=== PATIENT | female | born 1965 | race Caucasian/White ===

== ENCOUNTER → 2018-03-03 16:40 | Outpatient (REF) | payer BC, SELFPAY ==
[2018-03-03 21:45] LABS: Absolute Basophil Count 0.04 k/cumm (0.0-0.2); Absolute Eosinophil Count 0.17 k/cumm (0.0-0.7); Absolute Lymphocyte Count 2.43 k/cumm (1.2-3.4); Absolute Monocyte Count 0.53 k/cumm (0.11-0.7); Absolute Neutrophil Count 3.56 k/cumm (1.2-6.7); Basophils % 0.6; Eosinophils % 2.5; HCT 41.8 % (36.0-46.0); Lymphocytes % 36.1; Mean Corp. HGB Concentration 33.5 g/dL (32.0-36.0); Mean Corpuscular Hemoglobin 30.2 pg (27.0-33.0); Mean Corpuscular Volume 90.3 fL (80-95); Mean Platelet Volume 11.4 fL (8.0-11.0); Monocytes % 7.9; Neutrophils % 52.9; Platelet Count 227 x1000/uL (130-400); RBC 4.63 m/cumm (4.00-5.20); RBC Distribution Width 13.1 % (11.7-14.6); White Blood Cell Count 6.73 k/cumm (4.4-10.8)
[2018-03-03 22:06] LABS: Iron 36 ug/dL (50-175); Total Iron Binding Capacity 343 ug/dL (250-450); Transferrin Sat 10 % (15-50)
[2018-03-03 22:52] LABS: Ferritin 87 ng/mL (8-388)
== END ==
LOC: NCHCN 16:40
PROVIDERS: PCP Nurse Practitioner Family; Visit Provider Nurse Practitioner Family
DX: R30.0 Dysuria (principal); K92.1 Melena; R53.83 Other fatigue; I10 Essential (primary) hypertension; N39.3 Stress incontinence (female) (male); J34.89 Other specified disorders of nose and nasal sinuses; E03.9 Hypothyroidism, unspecified
CPT/HCPCS: 82728; 83540; 83550; 85025; 87086

== ENCOUNTER → 2018-03-28 00:52 | Outpatient (CLI) | payer BC, SELFPAY ==
--- NOTE | 2018-03-28 16:24 | DI.MAMMO_ITS ---
SYMPTOM/DIAGNOSIS: SCREENING, Z12.31 MAMMOGRAM: Mammograms were interpreted according to the usual protocol including computer analysis with CAD system, tomosynthesis and C view imaging. The breast tissue is of moderate radiodensity. There is no demonstrated mass. There are no suspicious calcifications and there has been no significant interval change when compared with prior images. SUMMARY: No evidence of malignancy, Category 1, Yearly screening mammography is recommended. Breast density category B. SA ASSESSMENT OF FINDINGS: Negative. Category 1. Patient will receive a letter notifying them of these results. BI-RADS category B. There are scattered areas of fibroglandular density.
== END ==
PROVIDERS: PCP Nurse Practitioner Family; Visit Provider Nurse Practitioner Family
DX: Z12.31 Encounter for screening mammogram for malignant neoplasm of breast (principal)
CPT/HCPCS: 77063; 77067

== ENCOUNTER 2018-04-18 16:47 | Outpatient (REF) | payer BC, SELFPAY ==
--- NOTE | 2018-04-18 16:30 | PAPFT_PTH ---
PATIENT: Maryana Carmona LOC: [facility]#:[id number] AGE/SX: 52/F ROOM: RE04/18/[address]: Alyson Dolan : 1965 BED: DIS: 04/18/2018 SPEC #: [id number] RECD: 04/19/18 13:15 STATUS: RADHA KELLEY #: [id number] JACKI: 04/18/18 16:[address]: Alyson Dolan DEPT: [facility] Cytology RECD BY: Mayra Romero Tissues: 1 - CX/ENDOCX FOR PAP SMEARS Procedures: PAP THIN PREP/UVM Screening HPV DNA PROBE Comments: [id number] (CHLAMYDIA/GC)
[2018-04-20 10:47] LABS: HIV-1/2 Ag & Ab Screen Negative (NEGAT)
[2018-04-20 11:41] LABS: Syphilis Serology (RPR) Negative (Negative)
[2018-04-20 14:02] LABS: Chlamydia Result Negative; GC Result Negative; Specimen Description SEE COMMENTS
== END 2018-04-18 17:07 ==
LOC: NCHCN 16:47
PROVIDERS: PCP Nurse Practitioner Family; Visit Provider Nurse Practitioner Family
DX: Z00.00 Encounter for general adult medical examination without abnormal findings (principal); Z11.4 Encounter for screening for human immunodeficiency virus [HIV]; Z11.3 Encounter for screening for infections with a predominantly sexual mode of transmission; Z12.4 Encounter for screening for malignant neoplasm of cervix; Z11.51 Encounter for screening for human papillomavirus (HPV)
CPT/HCPCS: 87389; 87491; 87591; 88142; 86592; 87624

== ENCOUNTER 2018-08-14 17:12 | Outpatient (REF) | payer BC, SELFPAY ==
[2018-08-14 21:23] LABS: Abs Immature Grans 0.02 k/cumm (0.0-0.09); Absolute Basophil Count 0.04 k/cumm (0.0-0.2); Absolute Lymphocyte Count 2.53 k/cumm (1.2-3.4); Absolute Monocyte Count 0.54 k/cumm (0.11-0.7); Absolute Neutrophil Count 3.87 k/cumm (1.2-6.7); Basophils % 0.6; Eosinophils % 2.8; HCT 40.7 % (36.0-46.0); HGB 13.4 g/dL (12.0-15.5); Immature Grans % 0.3; Lymphocytes % 35.1; Mean Corp. HGB Concentration 32.9 g/dL (32.0-36.0); Mean Corpuscular Volume 91.1 fL (80-95); Mean Platelet Volume 11.3 fL (8.0-11.0); Monocytes % 7.5; Neutrophils % 53.7; Platelet Count 240 x1000/uL (130-400); RBC 4.47 m/cumm (4.00-5.20); RBC Distribution Width 13.3 % (11.7-14.6)
[2018-08-14 21:55] LABS: Anion Gap 9.6 mmol/L (3-11); BUN 26 mg/dL (7-18); CO2 28.4 mmol/L (21.0-32.0); CREATININE 0.95 mg/dL (0.55-1.02); Chloride 103 mmol/L (98-107); Cholesterol 148 mg/dL (50-200); Glucose 89 mg/dL (70-100); HDL Cholesterol 71 mg/dL (40-60); LDL CHOLESTEROL 62 mg/dL (<100); Sodium 141 mmol/L (136-145); Triglyceride 40 mg/dL (30-150)
[2018-08-14 22:30] LABS: Iron 92 ug/dL (50-175); Total Iron Binding Capacity 325 ug/dL (250-450); Transferrin Sat 28 % (15-50)
== END 2018-08-14 17:32 ==
LOC: NCHCN 17:12
PROVIDERS: PCP Nurse Practitioner Family; Visit Provider Nurse Practitioner Family
DX: I10 Essential (primary) hypertension (principal); E03.9 Hypothyroidism, unspecified; E61.1 Iron deficiency; F52.6 Dyspareunia not due to a substance or known physiological condition; M25.519 Pain in unspecified shoulder; R00.8 Other abnormalities of heart beat; N39.3 Stress incontinence (female) (male); J34.89 Other specified disorders of nose and nasal sinuses
CPT/HCPCS: 80048; 80061; 83721; 83540; 83550; 84443; 85025

== ENCOUNTER 2018-12-18 14:08 | Outpatient (REF) | payer BC, SELFPAY | END 2018-12-18 14:28 | LOC: NCHCN 14:08 | PROVIDERS: PCP Nurse Practitioner Family; Visit Provider Nurse Practitioner Family | DX: N76.0 Acute vaginitis (principal) | CPT/HCPCS: 87480; 87510; 87660 ==

== ENCOUNTER 2019-04-19 16:54 | Outpatient (REF) | payer BC, SELFPAY ==
--- NOTE | 2019-04-19 15:36 | PAPFT_PTH ---
PATIENT: Maryana Carmona LOC: [facility]#:[id number] AGE/SX: 53/F ROOM: RE04/19/[address]: Alyson Dolan : 1965 BED: DIS: 04/19/2019 SPEC #: [id number] RECD: 04/20/19 12:59 STATUS: RADHA RERalf #: [id number] JACKI: 04/19/19 15:[address]: Alyson Dolan DEPT: [facility] Cytology RECD BY: Mayra Romero Tissues: 1 - CX/ENDOCX FOR PAP SMEARS Procedures: PAP THIN PREP/UVM Screening HPV DNA PROBE Comments: [id number]
== END 2019-04-19 17:14 ==
LOC: NCHCN 16:54
PROVIDERS: PCP Nurse Practitioner Family; Visit Provider Nurse Practitioner Family
DX: Z12.4 Encounter for screening for malignant neoplasm of cervix (principal); Z11.51 Encounter for screening for human papillomavirus (HPV); Z86.19 Personal history of other infectious and parasitic diseases
CPT/HCPCS: 88142; 87624

== ENCOUNTER 2019-06-20 00:59 | Outpatient (CLI) | payer BC, SELFPAY ==
--- NOTE | 2019-06-20 15:10 | DI.MAMMO_ITS ---
EXAM: MG MAMMO SCREENING CLINICAL HISTORY: SCREENING. TECHNIQUE: Full field digital CC and MLO mammographic images were obtained with 3D tomosynthesis and utilizing computer aided detection (CAD). COMPARISON: 2011 to 2017 FINDINGS: Breast Density - Category B - Scattered areas of fibroglandular density Masses/Architectural Distortion: None seen. Microcalcifications: No suspicious pleomorphic-type calcifications are seen. Skin Thickening/Nipple Retraction: None. Axilla: Unremarkable. IMPRESSION: 1. BI-RADS category 1, negative. No significant interval change with no specific features of maligna ncy noted. 2. Unless there is more urgent need, screening mammography is recommended, as per [place] guidelines. BI-RADS Cat 1 - Negative Breast Density - Category B - Scattered areas of fibroglandular density A negative radiographic report should not delay biopsy if a dominant or clinically suspicious mass is present. Up to ten percent of cancers are not identified on mammography. A negative report may reinforce clinical impression. Adenosis and dense breasts may obscure an underlying neoplasm. False positive reports average 6 to 10%. Patient will receive a letter notifying them of these results.
== END 2019-06-20 01:19 ==
PROVIDERS: PCP Nurse Practitioner Family; Visit Provider Nurse Practitioner Family
DX: Z12.31 Encounter for screening mammogram for malignant neoplasm of breast (principal)
CPT/HCPCS: 77063; 77067

== ENCOUNTER 2019-09-11 13:00 | Outpatient (REF) | payer BC, SELFPAY ==
[2019-09-11 22:17] LABS: Iron 132 ug/dL (50-170)
[2019-09-11 22:19] LABS: Anion Gap 10.1 mmol/L (3-11); BUN 19 mg/dL (7-18); CO2 28.9 mmol/L (21.0-32.0); CREATININE 0.86 mg/dL (0.55-1.02); Calcium 8.7 mg/dL (8.5-10.1); Chloride 104 mmol/L (98-107); Glucose 83 mg/dL (74-106); Potassium 4.1 mmol/L (3.5-5.1); Sodium 143 mmol/L (136-145); TSH (W/Ref FT4) 1.09 uIU/mL (0.36-3.74)
== END 2019-09-11 13:20 ==
LOC: NCHCN 13:00
PROVIDERS: PCP Nurse Practitioner Family; Visit Provider Nurse Practitioner Family
DX: I10 Essential (primary) hypertension (principal); R53.83 Other fatigue; E61.1 Iron deficiency; R00.8 Other abnormalities of heart beat
CPT/HCPCS: 80048; 83540; 84443

== ENCOUNTER 2019-12-17 17:22 | Outpatient (REF) | payer BC, SELFPAY ==
[2019-12-17 23:00] LABS: Anion Gap 8.6 mmol/L (3-11); BUN 17 mg/dL (7-18); CO2 29.4 mmol/L (21.0-32.0); CREATININE 0.94 mg/dL (0.55-1.02); Calcium 8.9 mg/dL (8.5-10.1); Chloride 103 mmol/L (98-107); Glucose 106 mg/dL (74-106); Potassium 3.9 mmol/L (3.5-5.1); Sodium 141 mmol/L (136-145)
== END 2019-12-17 17:42 ==
LOC: LBN 17:22
PROVIDERS: PCP Nurse Practitioner Family; Visit Provider Nurse Practitioner Family
DX: I10 Essential (primary) hypertension (principal); E03.9 Hypothyroidism, unspecified; R53.83 Other fatigue; E61.1 Iron deficiency
CPT/HCPCS: 80048

== ENCOUNTER 2020-02-22 12:38 | Emergency (ER) | payer BC, SELFPAY ==
[2020-02-22 12:42] VITALS: BP 157/68; PULSE 56; RESP 18; TEMP 36.7; O2SAT 100
--- NOTE | 2020-02-22 12:43 | ED.GENADUL_ITS ---
Discharge Plan Disposition Patient Disposition: HOME Condition: Good Discharge Details Chief Complaint: Orthopedic Clinical Impression: Foot pain, right Primary Care Provider: Alyson Dolan ED Provider: Frances Yung Home Meds and New Rx's Prescriptions: Continued levothyroxine 75 MCG tablet 75 mcg PO DAILY Qty: 90 RF: 4 epinephrine [EpiPen 2-Zheng] 0.3 MG/0.3 ML auto-injector 0.3 mg IM PRN PRNRF: 0 meloxicam 15 mg tablet 15 mg PO DAILY PRNRF: 0 lisinopril 5 mg tablet 5 mg PO DAILY RF: 0 Discharge Instructions Instructions: Leg Pain (ED) Additional Instructions: X-ray is reassuring today. Encourage rest, ice, elevation. Tylenol and ibuprofe n as needed for discomfort. May use the postop shoe to help with discomfort while pain persists. If pain is not better over the next 2 weeks please follow- up with primary care. He may continue with physical therapy. Develop any new or worsening symptoms please seek care urgently once again. Referrals: Alyson Dolan [Primary Care Provider] - Discharge Data Discharge Date/Time-TO BE ENTERED AT DEPARTURE: 02/22/20 14:08 Medical Decision Making Patient is a pleasant 54-year-old female presenting today with chief complaint of left foot pain. She reports that 6 days ago she was ambulating on uneven sidewalk when she twisted her foot causing pain laterally. States that initially she had swelling. This did go down with ice and elevation. Seen by physical therapy today. If she is seeing them for multitude of reasons 1 of which is plantar fasciitis to the affected foot and they recommended that she come here for evaluation of possible fracture. Pain is primarily along the lateral aspect of the foot of the fifth metatarsal but also over the medial side of the forefoot. She reports antalgic gait. X-ray reviewed by radiology: FINDINGS: BONES: No acute fracture is present. No bony destructive lesion is seen. The bones appear osteoporotic. JOINTS: There are degenerative changes, greatest of the lateral femoral tibial joint.. No joint effusion is seen. SOFT TISSUE: Normal. IMPRESSION: Degenerative changes. No acute abnormality. Discussed findings with the patient. I encouraged RICE. To help with discofmort, will give postop shoe. Advised f/u with PCP in 1-2 wk if not improving. Return precautions were given. All questions and concerns were addressed, she is in agreement with this plan. HPI General Mode of arrival: ambulatory . Date/Time Provider Initiated Documentation: 02/22/20 12:42 . Limitations to Documentation: no limitations . Information obtained by: patient and RN notes reviewed . History of Present Illness 54 year old F presents to the emergency department with the chief complaint of right foot pain, described as severe, with intensity rated at 8. Quality is described as aching, and is localized to the right and lower extremity. Patient reports no radiation. Patient started experiencing this day(s) (6) and it has been constant. Immobilization improves symptom(s), Movement worsens symptoms . Patient notes no other symptoms.. Patient did receive the following treatments prior to arrival, other (meloxicam and ice) Related Data Home Medications Medication Instructions Recorded Confirmed levothyroxine 75 mcg PO DAILY #90 tab 04/08/15 02/22/20 epinephrine [EpiPen 2-Zheng] 0.3 mg IM PRN PRN 12/22/15 02/22/20 lisinopril 5 mg PO DAILY 02/22/20 02/22/20 meloxicam 15 mg PO DAILY PRN 02/22/20 02/22/20 Allergies Allergy/AdvReac Type Severity Reaction Status Date / Time egg Allergy Severe Anaphylaxsi Unverified 02/22/20 12:46 s Review of Systems Constitutional Constitutional: Reports as per HPI, Denies chills, Denies fever(s), Denies headache(s) and Denies weakness ENT Ears, Nose, Mouth, and Throat: Denies headache(s) Cardiovascular Cardiovascular: Reports as per HPI Respiratory Respiratory: Reports as per HPI and Denies cough Musculoskeletal Musculoskeletal: Reports as per HPI and Denies tingling Integumentary/Breasts Skin/Breast: Reports as per HPI, Denies rash and Denies wounds Neurologic Neurologic: Reports as per HPI, Denies headache(s), Denies tingling, Denies paresthesias and Denies weakness [facility] Medical History Hypothyroid (Chronic) Surgical History History of tubal ligation (Chronic) Social History Smoking/Tobacco Use Status: Former Tobacco Use Alcohol Intake: current Alcohol Intake frequency: a few times a month Drug use: Never Substance use type: does not use Do you feel safe at home: Yes Do you feel safe in your relationship?: Yes Female Reproductive History Menstrual Age of Menarche: 10 control method: permanent sterilization Menopause type: natural History History 4 Para 1 Hx # Term Pregnancies Multiple births Hx # Pregnancies Ectopic pregnancies AB induced Hx Number of Living Children AB spontaneous Exam Const General: cooperative, healthy appearing, comfortable, no acute distress, well developed and well groomed Nutritional Appearance: average body habitus and well nourished Orientation: alert and awake Resp Effort & Inspection: normal respiratory effort, able to speak in complete sentences and no respiratory distress Cardio Rate: regular rate Rhythm: regular rhythm Skin General skin exam: no rashes or lesions noted Lesions: no lesions Rashes: no rashes Trauma: no lacerations or abrasions Neuro General: patient alert and patient awake Cognition: normal cognition Speech: speech normal Gait: normal gait Motor: muscle tone normal throughout Sensory Exam: no sensory deficits noted Extrem Left lower extremity: normal to inspection, full ROM, normal capillary refill, no joint enlargement, lower leg Details: normal to inspection and no edema; no tenderness, no localized swelling and no palpable cords, ankle Details: normal to inspection and normal ROM; no tenderness, no swelling and achilles tendon exam normal and foot Details: normal capillary refill, normal to inspection, tenderness Location: of the plantar foot Location: distally (under the forefoot, no ecchymosis or swelling noted), of the lateral foot and of the base of the 5th metatarsal (pain along the 5th but not the proximal aspect); not of the great toe, not of the calcaneus and not of the medial foot, toes with normal ROM, no edema, vascular exam Details: dorsalis pedis pulse present, posterior tibial pulse present and normal capillary refill and motor-sensory exam Details: light- touch normal; Negative for abnormal to inspection, no unusual warmth, no lacerations, no ecchymosis and no crepitus; no edema Psych Appearance: grossly normal and well kempt Mental Status: mental status grossly normal Speech and Movement: speech and movement normal
--- NOTE | 2020-02-22 13:31 | DI.RAD_ITS ---
EXAM: XR FOOT RT COMPLETE CLINICAL HISTORY: injury 6 days ago, lateral pain. TECHNIQUE: 2D digital imaging was performed. COMPARISON: No exams were available for comparison FINDINGS: BONES: No acute fracture is present. No bony destructive lesion is seen. There are prominent heel sp urs. There are degenerative changes at the tarsal metatarsal joints. JOINTS: No dislocation present. SOFT TISSUE: Normal. IMPRESSION: Degenerative changes. No acute abnormality. DATA REPOSITORY: RADIATION DOSE DELIVERED:
== END 2020-02-22 14:08 | disposition home or self-care (01) ==
PROVIDERS: Emergency Provider Physician Assistant; PCP Nurse Practitioner Family
DX: M25.571 Pain in right ankle and joints of right foot (principal); X50.9XXA Other and unspecified overexertion or strenuous movements or postures, initial encounter
CPT/HCPCS: 99283; 73630

== ENCOUNTER 2020-04-15 00:03 | Outpatient (CLI) | payer BC, SELFPAY ==
--- NOTE | 2020-04-15 | DI.NM_ITS ---
APPROVED REPORT Exam: Exercise Treadmill Patient Location: Out-Patient Room/Bed: Stress Nurse: Sharron Corley RN BMI: 28.31 Baseline Rhythm: Sinus Bradycardia, frequent unifocal PVCs Indications: Angina. 5/10 constant and nonradiating left chest pressure. Medical History Medical History: HTN Cardiac Medications: lis, Lisinopril Allergies: No known drug allergies Cardiac Risk Factors: FHX of CAD, HTN Previous Cardiac Procedures: None Pretest Chest Pain Characteristics: 5/10 constant chest pressure. Exercise History: Physically active Lung Sounds: Clear to auscultation Heart Sounds: Regular Stress Test Details Test: Exercise stress testing was performed using a Olivier protocol. Nuclear Acquisition: Rest Tc-99m/Stress Tc-99m 1 day Rest Isotope: Tc-99m Sestamibi. Dose: 10.7 Date: 04/15/2020 Injection Time: 0835 Stress Isotope: Tc-99m Sestamibi. Dose: 32 Date: 04/15/2020 Injection Time: 1010 HR Resting HR Supine: 53 bpm Max Heart Rate (APMHR): 164 bpm Resting HR Standin bpm Target HR (85% APMHR): 139 bpm Max HR Achieved: 188 bpm % of APMHR: 114 Recovery HR: 81 bpm HR response to stress: Normal HR response to stress BP Resting BP Supine: 150/80 mmHg Resting BP Standin/78 mmHg Max BP: 172/58 mmHg Recovery BP: 126/76 mmHg BP response to stress: Normal blood pressure response to stress. ECG Resting ECG: Sinus Bradycardia Ectopy: frequent unifocal PVCs Stress ECG: Sinus Tachycardia ST Change: No significant ST segment changes noted. Comment: rare PVC noted during exercise. Recovery ECG: Sinus Bradycardia Recovery ST Change: Normal Recovery Arrhythmia: frequent unifocal PVCs, trigeminy, bigeminy Clinical Reason for Termination: Fatigue Stress Symptoms: 5/10 Chest pain (no change from baseline) Exercise duration: 13 min34 sec Highest Stage Reached: Stage 5: 5.0 mph at 18% grade. Exercise capacity: 14.56 METs Stress ECG Conclusion 1. The patient exercised for 14 minutes (15 METS). 2. The patient had baseline chest pain which did not change with exertion. 3. There is no evidence of ischemia on the EKG portion of the exam. Stress Test Summary STAGE Time (mins) Speed (mph) Grade (%) HR BP SYMPTOMS METS Supine 53 150/80 5/10 chest pressure Standing 55 136/76 5/10 chest pressure 1 3 1.7 10 88 144/74 5/10 chest pressure 4.6 2 6 2.5 12 98 156/70 5/10 chest pressure 7 3 9 3.4 14 117 162/66 5/10 chest pressure 10.2 4 12 4.2 16 143 12.9 1 min recovery 125 172/58 5/10 chest pressure 3 min recovery 73 152/68 5/10 chest pressure 6 min recovery 81 126/76 5/10 chest pressure MPI Conclusion The patient's ejection fraction was 57% with stress. There were no wall motion abnormalities. There is no evidence of ischemia on the imaging portion of the exam. This represents a normal SPECT stress test. Radiologist Interpretation Radiologist Interpretation by: Haroon Espinosa MD Interpretation Date/Time: 04/16/2020 16:03:09
== END 2020-04-15 00:23 ==
PROVIDERS: PCP Nurse Practitioner Family; Visit Provider Family Medicine
DX: I20.9 Angina pectoris, unspecified (principal); I10 Essential (primary) hypertension; R07.89 Other chest pain; Z82.49 Family history of ischemic heart disease and other diseases of the circulatory system
CPT/HCPCS: 78452; 93017

== ENCOUNTER 2020-05-28 13:55 | Outpatient (REF) | payer BC, SELFPAY ==
[2020-06-01 15:00] LABS: SARS-CoV-2 RNA Undetected (Undetected); SARS-CoV-2 Specimen Source Nasal
== END 2020-05-28 14:15 ==
LOC: NCHCN 13:55
PROVIDERS: PCP Nurse Practitioner Family; Visit Provider Nurse Practitioner Family
DX: Z20.828 Contact with and (suspected) exposure to other viral communicable diseases (principal)
CPT/HCPCS: U0003

== ENCOUNTER 2020-11-07 18:19 | Outpatient (REF) | payer BC, SELFPAY ==
[2020-11-07 21:34] LABS: HCT 41.3 % (36.0-46.0); HGB 13.8 g/dL (11.2-15.7); MCH 28.8 pg (27.0-33.0); MCHC 33.4 % (32.0-36.0); MPV 11.3 fL (8.0-11.0); Platelet Count 261 10^3/uL (130-400); RDW 12.6 % (11.7-14.6); RDW-SD 39.7 fL
[2020-11-07 22:02] LABS: Iron 49 ug/dL (50-170); Total Iron Binding Capacity 312 ug/dL (250-450); Transferrin Sat 16 % (15-50)
[2020-11-07 22:27] LABS: ALT 31 U/L (14-59); AST 21 U/L (15-37); Albumin 4.1 g/dL (3.4-5.0); Alkaline Phosphatase 92 U/L (46-116); Anion Gap 7.7 mmol/L (3-11); BUN 15 mg/dL (7-18); Bilirubin, Total 0.3 mg/dL (0.2-1.0); CO2 31.3 mmol/L (21.0-32.0); CREATININE 0.9 mg/dL (0.55-1.02); Calcium 9.1 mg/dL (8.5-10.1); Calculated LDL 139 mg/dL (<100); Chloride 104 mmol/L (98-107); Cholesterol 211 mg/dL (<200); Ferritin 232 ng/mL (8-252); Glucose 77 mg/dL (74-106); HDL Cholesterol 42 mg/dL (40-60); Magnesium 2.3 mg/dL (1.8-2.4); Potassium 3.9 mmol/L (3.5-5.1); Sodium 143 mmol/L (136-145); Total Protein 7.3 g/dL (6.4-8.2); Triglyceride 154 mg/dL (<150); Vitamin B12 433 pg/mL (193-986)
== END 2020-11-07 18:20 | disposition home or self-care (01) ==
LOC: NCHCN 18:19
PROVIDERS: PCP Nurse Practitioner Family; Visit Provider Nurse Practitioner Family
DX: K30 Functional dyspepsia (principal); Z80.0 Family history of malignant neoplasm of digestive organs; I20.9 Angina pectoris, unspecified; M79.671 Pain in right foot; M19.049 Primary osteoarthritis, unspecified hand; M54.16 Radiculopathy, lumbar region; I10 Essential (primary) hypertension; E61.1 Iron deficiency
CPT/HCPCS: 80053; 80061; 85027; 82607; 82728; 83540; 83550; 83735; 84443

== ENCOUNTER 2021-01-12 01:51 | Outpatient (CLI) | payer BC, SELFPAY ==
--- NOTE | 2021-01-12 | DI.MAMMO_ITS ---
Exam(s) MAMMO SCREENING EXAM: MAMMO SCREENING CLINICAL HISTORY: SCREENING, FAMILY H/O BREAST CA, Z80.3,Z12.31. TECHNIQUE: Bilateral full field digital CC and MLO mammographic images were obtained with 3D tomosyn thesis and utilizing computer aided detection (CAD). COMPARISON: Prior mammograms dating back to 2011, the most recent being June 2019. Her mother was diagnosed with postmenopausal breast cancer FINDINGS: There are no CAD designations. There are no new spiculated masses nor malignant appearing microcalcification groups. There is no significant architectural distortion nor skin thickening-retraction. IMPRESSION: No radiographic evidence of malignancy. BI-RADS Category 1 - Negative Breast Density - Category B - Scattered areas of fibroglandular density Breast density Category C or D implies that the patient has dense breast tissue. Dense breast tissue can make it harder to find cancer on a mammogram. Dense breast tissue is also associated with an incr eased risk of breast cancer. This information about the result of the mammogram report was provided to the patient to raise their awareness. Use this report when you speak with the patient about their risks for breast cancer, which includes their family history. At that time, you may recommend additional screening tests (Ultrasoun d or MRI) as these tests may add significant information. A negative radiographic report should not delay biopsy if a dominant or clinically suspicious mass is present. Up to ten percent of cancers are not identified on mammography. A negative report may reinforce clinical impression. Adenosis and dense breasts may obscure an underlying neoplasm. False positive reports average 6 to 10%. Patient will receive a letter notifying them of these results.
== END 2021-01-12 02:11 ==
PROVIDERS: PCP Nurse Practitioner Family; Visit Provider Nurse Practitioner Family
DX: Z12.31 Encounter for screening mammogram for malignant neoplasm of breast (principal); R92.8 Other abnormal and inconclusive findings on diagnostic imaging of breast; Z80.3 Family history of malignant neoplasm of breast
CPT/HCPCS: 77063; 77067

== ENCOUNTER 2021-05-06 03:09 | Outpatient (CLI) | payer BC, SELFPAY ==
[2021-05-06 11:12] LABS: Source Nasal/Nares
[2021-05-06 13:11] LABS: COVID-19 PCR Negative (Negative)
== END 2021-05-06 03:10 | disposition home or self-care (01) ==
LOC: LBO 03:09
PROVIDERS: PCP Nurse Practitioner Family; Visit Provider Surgery
DX: Z20.822 Contact with and (suspected) exposure to COVID-19 (principal)
CPT/HCPCS: 87635

== ENCOUNTER 2021-05-08 09:07 | Day surgery (SDC) | payer BC, SELFPAY ==
--- NOTE | 2021-05-07 19:36 | W.COLOREPORT ---
Colonoscopy Report Date of procedure: 05/08/21 Pre-op diagnosis general: villous adenoma. remoate fam hx of CRC Post-op diagnosis procedure note: other (diverticula/polyp) Surgeon: Tanja Guajardo Anesthesia Type: MAC Estimated blood loss (mL): 1 Pathology: none sent Complications: None Disposition: same day Prep: Miralax/Dulcolax Retraction Time: 8 mins Procedure Description: After informed consent was obtained the patient was taken to the procedure room and placed in a left decubitous position. Monitors were applied and a time out was done. The patients name, date of , procedure, allergies to medications and metal in their body was reviewed. The patient was then sedated. Once sedated and comfortable a rectal exam was done. External exam was normal. Internal exam revealed a normal sphincter tone and no palpable masses. The scope was then introduced and retrofelexed. No internal hemorrhoids were identified. The scope was then advanced to the cecum w/out difficulty. The TI and appendiceal orifice were identified. The prep was good. The scope was then slowly retracted over 8 minutes back into the rectum. She has few, but [place] diverticula that are confined to the sigmoid colon. There is no signs of active bleeding or infection. She had a small polyp in the rectum. This is flat 5 mm polyp. It is removed with a cold biopsy forcep. All specimen is retrieved and no bleeding is noted. No AVMs are visualized today. The scope was removed and the patient was woken up and taken back to Same day surgery in stable condition. The patient tolerated the procedure well and there were no immediate complications. Follow up: The patient should follow up in 5 years unless they develop changes in bowel habits or other new gastrointestinal complaints.
--- NOTE | 2021-05-07 19:37 | PDOC.DSDIS_ITS ---
Discharge Plan Disposition Patient Disposition: HOME Condition: Good Discharge Details Reason For Visit: colon scope Attending Provider: Tanja Guajardo Primary Care Provider: Alyson Dolan Home Meds and New Rx's Prescriptions: Continued levothyroxine 75 MCG tablet 75 mcg PO DAILY Qty: 90 RF: 4 fluticasone propionate 50 mcg/actuation spray,suspension 1 spray intranasal DAILY RF: 0 aspirin 81 mg tablet,delayed release (DR/EC) 81 mg PO DAILY RF: 0 omeprazole 20 mg capsule,delayed release(DR/EC) 20 mg PO DAILY RF: 0 epinephrine [EpiPen 2-Zheng] 0.3 MG/0.3 ML auto-injector 0.3 mg IM PRN PRNRF: 0 meloxicam 15 mg tablet 15 mg PO DAILY PRNRF: 0 lisinopril 5 mg tablet 5 mg PO DAILY RF: 0 Discontinued bisacodyl [Dulcolax (bisacodyl)] 5 mg tablet,delayed release (DR/EC) 5 mg PO ONCE Qty: 4 RF: 0 polyethylene glycol 3350 17 gram/dose powder 238 g PO ONCE Qty: 238 RF: 0 Discharge Instructions Additional Instructions: DSU Colonoscopy Post- Op Instructions Instructions for Everyone who is given Anesthesia: For your safety, please do the following for the next twenty-four (24) hours: *Do Not operate a motor vehicle (car, truck, motorcycle, etc.) *Do Not drink alcoholic beverages or use any recreational drugs for the first 24 hours or while taking pain medications. The medications in your body may have a reaction that can be dangerous. *Do Not make any important decisions or sign any important papers. Findings:diverticula polyp x1 Follow up:repeat in 5 yrs time 1. No lifting over 20 pounds or strenuous activity for the first 24 hours after your procedure. After 24 hours there are no restrictions on your activity but you may feel fatigued for a few days. 2. After you arrive home you may have a light meal and return to your normal diet as you can tolerate it without feeling sick to your stomach. 3. You may have a bloated, gaseous feeling in your belly (abdomen) after a colonoscopy. Passing gas and belching will help. Walking or lying down on your left side with your knees flexed may relieve the discomfort. Call the office at [phone] (Office) or [phone] (Hospital) right away if you notice any of the following: a.Vomiting of blood or ?coffee ground stools?. b.Rectal bleeding 1Tbsp, blood clots or continuous bleeding. c.Severe belly (abdominal) pain. d.A hard distended belly (abdomen) and an inability to pass gas. 4. Please don?t expect to have a normal BM (bowel movement) for 2-3 days after your procedure. 5. If there are questions regarding the findings of your procedure, please contact your doctor 6. If you are unable to contact your doctor with a problem, contact the hospital at [phone]. 7. Continue all your regular medications unless directed otherwise. I understand the above instructions and have no questions. Signature of Patient or Adult Escort Name of Responsible Adult Escort Signature of Nurse Date/Time Activity:: see above Diet:: see above Discharge Orders Discharge Orders: Discharge Order (Routine); Ordered 05/07/21 Ordered By: Tanja Guajardo DS: Diagnosis Discharge Diagnosis (1) Tubulovillous adenoma: Status: Acute (2) Diverticula of colon: Status: Acute
[2021-05-08] VITALS (8 sets, daily range): BP systolic 113–160; BP diastolic 65–115; PULSE 62–72; RESP 14–23; TEMP 36.1–36.6; O2SAT 95–100; BMI 31.4
[2021-05-08] MEDS: Lactated Ringers 1,000 ML 80 ML IV (09:44)
--- NOTE | 2021-05-08 10:10 | W.ANESPRE ---
General Info Date of Service Date Performed: 05/08/21 Height: 5 ft 4 in Weight: 82.9 kg Body Mass Index (BMI): 31.4 Surgical Procedure: Operation Date: 05/08/21 10:05 Proposed Procedures Side Surgeon elmo Guajardo, DO Meds Allergies and Home Medications Allergies Allergy/AdvReac Type Severity Reaction Status Date / Time egg Allergy Severe Anaphylaxsi Unverified 05/08/21 09:30 s Home Medication Medication Instructions Recorded levothyroxine 75 mcg PO DAILY #90 tab 04/08/15 epinephrine [EpiPen 2-Zheng] 0.3 mg IM PRN PRN 12/22/15 lisinopril 5 mg PO DAILY 02/22/20 meloxicam 15 mg PO DAILY PRN 02/22/20 aspirin 81 mg tablet,delayed 81 mg PO DAILY 12/22/20 release fluticasone propionate 50 1 spray INTRANASAL DAILY 12/22/20 mcg/actuation nasal spray,suspension omeprazole 20 mg capsule,delayed 20 mg PO DAILY 12/22/20 release bisacodyl 5 mg tablet,delayed 5 mg PO ONCE #4 tab 04/27/21 release polyethylene glycol 3350 17 238 g PO ONCE #238 g 04/27/21 gram/dose oral powder Current Visit Medications: Current Medications Generic Name Dose Route Start Last Admin Trade Name Freq PRN Reason Stop Dose Admin Hyoscyamine Sulfate 0.125 mg 05/07/21 19:35 Hyoscyamine 0.125 Mg Sl/Oral/Chew SL DIRECTED PRN Ringer's Solution 1,000 mls @ 80 mls/hr 05/08/21 06:15 05/08/21 09:44 IV 80 mls/hr INFUSION EZRA Administration Sodium Chloride 500 mls @ 0 mls/hr 05/08/21 06:11 Saline 500ml Bag IV PRN PRN As Directed IV Miscellaneous Supplies 1 each 05/08/21 06:15 Iv Access IV DIRECTED EZRA Ondansetron HCl 4 mg 05/07/21 19:35 Ondansetron 4 Mg/2 Ml Vial IVP Q4H PRN PRN Nausea / Vomiting Sodium Chloride 0 ml 05/08/21 06:11 Normal Saline Flush 10 Ml Syr IVP PRN PRN PFSH Active Problems Active Problems: Problem Status Onset Code Tubulovillous adenoma 06/20/16 D36.9 Acquired hypothyroidism 10/17/14 E03.9 Fibroid uterus D25.9 Hypothyroid E03.9 Medical History Medical History Constipation Dyspareunia Family history of breast cancer Family history of colon cancer in mother Fatigue Fibroid uterus Hypertension Hypothyroid Iron deficiency Stress incontinence Ventricular bigeminy Surgical History Surgical History (Updated 05/08/21 @ 09:30 by Emeli Solorio RN) History of back surgery I beleive they fused some discs together History of tubal ligation Hx of colonoscopy Tobacco Smoking/Tobacco Use Status: Former Tobacco Use Alcohol Alcohol Intake: current Alcohol intake frequency: a few times a month Substance Use Substance use: Never Substance use type: does not use Prental History History 4 Para 1 Hx # Term Pregnancies Multiple births Hx # Pregnancies Ectopic pregnancies AB induced Hx Number of Living Children AB spontaneous Vital Signs and Lab Results Vital Signs Most Recent Vital Signs in EMR: Most Recent Vital Signs Temp Pulse Resp BP Pulse Ox 36.6 C 62 20 148/87 H 100 05/08/21 09:21 05/08/21 09:21 05/08/21 09:21 05/08/21 09:21 05/08/21 09:21 Lab Results Blood Type / Crossmatch: No Data to Display Complete Blood Count: No Data to Display Complete Metabolic Panel: No Data to Display Liver Function Panel: No Data to Display Coagulation Panel: No Data to Display Cardiac Panel: No Data to Display Arterial Blood Gas: No Data to Display Venous Blood Gas: No Data to Display Pancreas Panel: No Data to Display Thyroid Panel: No Data to Display Infectious Disease: Coronavirus (COVID-19)(PCR) Negative (Negative) 05/06/21 09:25 05/06/21 Coronavirus 2019 Source Nasal/Nares 05/06/21 09:25 05/06/21 Blood Cultures: No Data to Display Toxicology Panel: No Data to Display Imaging and Studies Imaging and Studies Stress Test Summary: MPI Conclusion The patient's ejection fraction was 57% with stress. There were no wall motion abnormalities. There is no evidence of ischemia on the imaging portion of the exam. This represents a normal SPECT stress test. Anesthesia Assessment and Plan Anesthesia History Personal History: No History of Anesthesia Complications Family History: No Family History of Anesthesia Complications Exercise Tolerance Exercise Tolerance: Metabolic Equivalents>4 Pertinent Negatives Pertinent Negatives: No Symptoms of GERD Cardiac & Pulmonary Exam Cardiac Exam: Normal S1/S2 Heart Sounds Pulmonary Exam: Clear Bilateral Breath Sounds Airway Exam Known Difficult Airway: No Mallampati Class: 2 Mouth Opening: Normal (> 3cm) Thyromental Distance: Greater than 3 cm Neck Range of Motion: Full ROM Neck Circumference: Normal Teeth Condition: Normal Dentition ASA Classification ASA Score: ASA 2 Emergency Case?: No NPO Status NPO Status: NPO Clears >2 hours, Solids >8 hours Anesthesia Plan Resuscitation Status: Full Code Anesthesia Technique: General Anesthesia Airway Planned: Natural Airway Monitors Used: Standard Monitors Preoperative Comments:: Patient with potential anaphylactic reaction in the past to Propofol at [facility]. Discussed options with anesthesia groupmates and decided on Midazolam, fentanyl, and ketamine with antiemetics as well due to PONV history.
--- NOTE | 2021-05-08 10:43 | BOWEL_PTH ---
PATIENT: Maryana Carmona LOC: [facility] U#:[id number] AGE/SX: 55/F ROOM: RE05/08/[address]: Tanja Guajardo : 1965 BED: DIS: 05/08/2021 SPEC #: [id number] RECD: 05/08/21 12:52 STATUS: RADHA RERalf #: [id number] JACKI: 05/08/21 10:[address]: Tanja Guajardo DEPT: Surgical Specimen RECD BY: Mayra Romero ENTERED: 05/08/21 12:53 SP TYPE: Bowel OTHR DR: Alyson Dolan Tissues: 1 - BIOPSY BOWEL Procedures: GROSS AND MICRO LEVEL 4 Comments: [id number]
[2021-05-08] MEDS: Normal Saline Flush 10 ML SYR IVP (11:45)
[2021-05-08] MEDS: Scopolamine 1 MG/3 DAYS PATCH TD (13:11)
--- NOTE | 2021-05-08 13:11 | W.ANESPOSTOP ---
Postoperative Evaluation Date, Time and Location Date Performed: 05/08/21 Time Performed: 12:55 Patient Location: Day Surgery Unit Vital Signs Most Recent Imported Vital Signs: Most Recent Vital Signs Temp Pulse Resp BP Pulse Ox 36.4 C L 63 15 120/83 99 05/08/21 12:06 05/08/21 12:06 05/08/21 12:06 05/08/21 12:06 05/08/21 12:06 Pain Score Most Recent Pain Score: Most Recent Pain Score Pain Level 0 05/08/21 12:06 Assessment Mental Status: Awake (Alert & Oriented to Patient Baseline) Airway and Respiratory Function: Patent airway with normal (patient baseline) respiratory exam Cardiovascular Function: Hemodynamically Stable Hydration Status: Adequately Hydrated Nausea & Vomiting: Active Nausea or Vomiting Present Nausea and Vomiting Management: Nausea present without vomiting, patient wishes to be discharged (Added scopolamine patch) Pain: Pt. Denies Any Pain Peripheral Nerve Block: Patient did not receive a nerve block
--- NOTE | 2021-05-18 10:05 | PDOC.ANES ---
Date of service: 05/18/21 Time of Service: 10:06 Anesthesia Note Report Anesthesia Note: Reviewed [facility] records as per discussion with patient. Anesthetic record in 2009 noted Egg allergy and avoidance of propofol. During that case induced with midazolam and ketamine and maintained with sevoflurane. Her 2009 anesthetic preop referenced a 2007 case and stated no known complications during that anesthetic. The patient reported to me during my preop I woke up and they told me I definitely had an egg allergy. Reported she had a reaction during the start of anesthesia. Patient wakes up significantly nauseous during her ketamine/midazolam anethetics. True allergy to propofol is significantly rare. I believe if we had appropriate allergy testing we might be able to offer her more anesthetic options. Discussed with the group and they agree. If the patient decides to have more operations here we do recommend lecithin specific testing.
== END 2021-05-08 13:42 | disposition home or self-care (01) ==
PROVIDERS: PCP Nurse Practitioner Family; Visit Provider Surgery
PROC: 0DJD8ZZ Inspection of Lower Intestinal Tract, Via Natural or Artificial Opening Endoscopic (ICD-10-PCS; CPT 45378; principal; 2021-05-08 10:00)
DX: Z12.11 Encounter for screening for malignant neoplasm of colon (principal); Z80.0 Family history of malignant neoplasm of digestive organs; K57.30 Diverticulosis of large intestine without perforation or abscess without bleeding; Z86.010 Personal history of colon polyps; K62.1 Rectal polyp
CPT/HCPCS: 45380; 88305; J1100; J2250; J2405; J3010

== ENCOUNTER 2021-10-22 20:09 | Outpatient (REF) | payer BC, SELFPAY ==
[2021-10-22 20:55] LABS: Abs Immature Grans 0.01 10^3/uL (0.0-0.06); Absolute Basophil Count 0.05 10^3/uL (0.0-0.2); Absolute Eosinophil Count 0.17 10^3/uL (0.0-0.7); Absolute Monocyte Count 0.48 10^3/uL (0.1-0.8); Basophils % 0.7; Eosinophils % 2.2; HCT 42.2 % (36.0-46.0); HGB 13.9 g/dL (11.2-15.7); Immature Grans % 0.1; Lymphocytes % 27.6; MCH 28.1 pg (27.0-33.0); MCHC 32.9 % (32.0-36.0); MCV 85.3 fL (80-95); MPV 10.7 fL (8.0-11.0); Monocytes % 6.3; Neutrophils % 63.1; Platelet Count 284 10^3/uL (130-400); RBC 4.95 10^6/uL (3.93-5.22); RDW 13.1 % (11.7-14.6); RDW-SD 41.1 fL; WBC 7.61 10^3/uL (4.4-10.8)
[2021-10-22 21:08] LABS: Iron 57 ug/dL (50-170); Total Iron Binding Capacity 378 ug/dL (250-450); Transferrin Sat 15 % (15-50)
[2021-10-22 21:58] LABS: ALT 34 U/L (14-59); AST 25 U/L (15-37); Albumin 4.4 g/dL (3.4-5.0); Alkaline Phosphatase 89 U/L (46-116); Anion Gap 7.9 mmol/L (3-11); BUN 23 mg/dL (7-18); Bilirubin, Total 0.4 mg/dL (0.2-1.0); CO2 28.1 mmol/L (21.0-32.0); CREATININE 0.9 mg/dL (0.55-1.02); Calcium 9.3 mg/dL (8.5-10.1); Chloride 104 mmol/L (98-107); Ferritin 64 ng/mL (8-252); Glucose 85 mg/dL (74-106); Magnesium 2.2 mg/dL (1.8-2.4); Potassium 4.1 mmol/L (3.5-5.1); Sodium 140 mmol/L (136-145); TSH (W/Ref FT4) 1.18 uIU/mL (0.36-3.74); Total Protein 7.5 g/dL (6.4-8.2); Vitamin B12 426 pg/mL (193-986)
== END 2021-10-22 20:10 | disposition home or self-care (01) ==
LOC: NCHCN 20:09
PROVIDERS: PCP Nurse Practitioner Family; Visit Provider Nurse Practitioner Family
DX: I10 Essential (primary) hypertension (principal); R10.9 Unspecified abdominal pain; K30 Functional dyspepsia; R51.9 Headache, unspecified; K59.00 Constipation, unspecified; E66.9 Obesity, unspecified; M19.041 Primary osteoarthritis, right hand; M19.042 Primary osteoarthritis, left hand
CPT/HCPCS: 80053; 82607; 82728; 83540; 83550; 83735; 84443; 85025

== ENCOUNTER 2022-01-29 18:39 | Outpatient (REF) | payer BC, SELFPAY ==
[2022-01-29 19:09] LABS: ESR 6 mm/hr (0-30)
[2022-01-29 19:24] LABS: C-Reactive Protein 0.17 mg/dL (0.0-0.3)
[2022-02-01 10:04] LABS: Lyme Ab w Rflx to Lyme Confirm Negative (Negative)
[2022-02-01 14:39] LABS: ANA Interpretation Negative (Negative)
[2022-02-11 00:20] LABS: Anaplasma phagocytophilum Negative (Negative); B. miyamotoi PCR Negative (Negative); Babesia divergens/MO-1 Negative (Negative); Babesia duncani Negative (Negative); Babesia microti Negative (Negative); Ehrlichia chaffeensis Negative (Negative); Ehrlichia ewingii/canis Negative (Negative); Ehrlichia muris eauclairensis Negative (Negative)
== END 2022-01-29 18:40 | disposition home or self-care (01) ==
LOC: NCHCN 18:39
PROVIDERS: PCP Nurse Practitioner Family; Visit Provider Nurse Practitioner Family
DX: E61.1 Iron deficiency (principal); K59.00 Constipation, unspecified; R53.83 Other fatigue; E03.9 Hypothyroidism, unspecified; R51.9 Headache, unspecified; E66.9 Obesity, unspecified
CPT/HCPCS: 85652; 87798; 86038; 86140; 86618

== ENCOUNTER → 2022-03-17 00:58 | Outpatient (CLI) | payer BC, SELFPAY ==
--- NOTE | 2022-03-17 08:00 | DI.MAMMO_ITS ---
Exam(s) MAMMO SCREENING EXAM: MAMMO SCREENING CLINICAL HISTORY: screening,Z12.39. TECHNIQUE: Bilateral full field digital CC and MLO mammographic images were obtained with 3D tomosyn thesis and utilizing computer aided detection (CAD). COMPARISON: Prior mammograms were reviewed, the most recent being January 2021. FINDINGS: There are no CAD designations. There are no new significant findings in left breast. In the right breast on CC image there is a 5 x 3 millimeter asymmetric density located 7 cm in from t he nipple, slightly lateral of center. Further imaging of this finding recommended. There are no malignant-appearing microcalcification groups is region or elsewhere in either breast. There is no significant architectural distortion nor skin thickening-retraction. IMPRESSION: 1. No radiographic evidence of malignancy in left breast. 2. Asymmetric density-possible nodule in the right breast as described above. Spot compression CC vi ew and ultrasound recommended. BI-RADS Category 0 - Assessment Incomplete: Need additional imaging evaluation Breast Density - Category B - Scattered areas of fibroglandular density Breast density Category C or D implies that the patient has dense breast tissue. Dense breast tissue can make it harder to find cancer on a mammogram. Dense breast tissue is also associated with an incr eased risk of breast cancer. This information about the result of the mammogram report was provided to the patient to raise their awareness. Use this report when you speak with the patient about their risks for breast cancer, which includes their family history. At that time, you may recommend additional screening tests (Ultrasoun d or MRI) as these tests may add significant information. A negative radiographic report should not delay biopsy if a dominant or clinically suspicious mass is present. Up to ten percent of cancers are not identified on mammography. A negative report may reinforce clinical impression. Adenosis and dense breasts may obscure an underlying neoplasm. False positive reports average 6 to 10%. Patient will receive a letter notifying them of these results.
== END ==
PROVIDERS: PCP Nurse Practitioner Family; Visit Provider Obstetrics & Gynecology
DX: Z12.31 Encounter for screening mammogram for malignant neoplasm of breast (principal); R92.8 Other abnormal and inconclusive findings on diagnostic imaging of breast
CPT/HCPCS: 77063; 77067

== ENCOUNTER → 2022-03-22 02:33 | Outpatient (CLI) | payer BC, SELFPAY ==
--- NOTE | 2022-03-22 07:00 | DI.MAMMO_ITS ---
Exam(s) MAMMO SCREEN CALL BACK UNI EXAM: MAMMO SCREEN CALL BACK UNI CLINICAL HISTORY: f/u mammo, rt asymmetric density, ? nodule,r92.8 TECHNIQUE: Cc spot compression view and tomographic imaging were performed of the right breast. COMPARISON: 17 March 2022 and exams back to . FINDINGS: No suspicious masses or suspicious microcalcifications are seen. No persistent abnormality is seen on the additional views performed. The findings are consistent wit h overlying fibroglandular tissue. There has been no significant change from prior exams. IMPRESSION: BI-RADS Category 1, Negative Yearly screening mammography is recommended. Breast Density - Category B, scattered fibroglandular densities.
== END ==
PROVIDERS: PCP Nurse Practitioner Family; Visit Provider Obstetrics & Gynecology
DX: R92.8 Other abnormal and inconclusive findings on diagnostic imaging of breast (principal)
CPT/HCPCS: 77063; 77067

== ENCOUNTER 2022-08-30 15:56 | Outpatient (REF) | payer BC, SELFPAY ==
[2022-08-30 20:53] LABS: Abs Immature Grans 0.02 10^3/uL (0.0-0.06); Absolute Basophil Count 0.05 10^3/uL (0.0-0.2); Absolute Eosinophil Count 0.15 10^3/uL (0.0-0.7); Absolute Lymphocyte Count 2.22 10^3/uL (1.2-3.4); Absolute Monocyte Count 0.59 10^3/uL (0.1-0.8); Absolute Neutrophil Count 4.33 10^3/uL (1.2-6.7); Basophils % 0.7; HCT 43.3 % (36.0-46.0); HGB 14.1 g/dL (11.2-15.7); Immature Grans % 0.3; Lymphocytes % 30.2; MCH 28.5 pg (27.0-33.0); MCHC 32.6 % (32.0-36.0); MCV 88 fL (80-95); MPV 10.2 fL (8.0-11.0); Neutrophils % 58.8; Platelet Count 310 10^3/uL (130-400); RBC 4.94 10^6/uL (3.93-5.22); RDW 13.2 % (11.7-14.6); RDW-SD 42.3 fL; WBC 7.36 10^3/uL (4.4-10.8)
[2022-08-30 21:02] LABS: Iron 86 ug/dL (50-170); Total Iron Binding Capacity 393 ug/dL (250-450); Transferrin Sat 22 % (15-50)
[2022-08-30 21:36] LABS: Anion Gap 8.2 mmol/L (3-11); BUN 13 mg/dL (7-18); CO2 30.8 mmol/L (21.0-32.0); Calcium 9.4 mg/dL (8.5-10.1); Calculated LDL 136 mg/dL (<100); Chloride 102 mmol/L (98-107); Cholesterol 211 mg/dL (<200); Ferritin 140 ng/mL (8-252); Glucose 79 mg/dL (74-106); HDL Cholesterol 63 mg/dL (40-60); Magnesium 2.2 mg/dL (1.8-2.4); Potassium 4.2 mmol/L (3.5-5.1); Sodium 141 mmol/L (136-145); TSH (W/Ref FT4) 0.94 uIU/mL (0.36-3.74); Triglyceride 61 mg/dL (<150); Vitamin B12 460 pg/mL (193-986)
== END 2022-08-30 15:57 | disposition home or self-care (01) ==
LOC: NCHCN 15:56
PROVIDERS: PCP Nurse Practitioner Family; Visit Provider Nurse Practitioner Family
DX: E61.1 Iron deficiency (principal); F41.8 Other specified anxiety disorders; E03.9 Hypothyroidism, unspecified; K30 Functional dyspepsia; I10 Essential (primary) hypertension; E66.8 Other obesity; K59.00 Constipation, unspecified
CPT/HCPCS: 80048; 80061; 82607; 82728; 83540; 83550; 83735; 84443; 85025

== ENCOUNTER → 2023-03-04 01:39 | Outpatient (CLI) | payer BC, SELFPAY ==
--- NOTE | 2023-03-04 | DI.MAMMO_ITS ---
Exam(s) MAMMO SCREENING EXAM: MAMMO SCREENING CLINICAL HISTORY: SCREENING, Z12.31, FAMILY HX BREAST CA, Z80.3 TECHNIQUE: Mammograms were interpreted according to the usual protocol including computer analysis w [employer] CAD system, tomosynthesis and C-view imaging. COMPARISON: 2013 through 2021 FINDINGS: The breasts are composed of mainly fatty density , Breast Density category A. No suspicious masses or suspicious microcalcifications are seen. No skin thickening or abnormal axillary lymph nodes are seen. There has been no significant change from prior exams. IMPRESSION: BI-RADS Category 1, Negative mammogram Yearly screening mammography is recommended. Breast Density - Category A, fatty density. A negative radiographic report should not delay biopsy if a dominant or clinically suspicious mass is present. Up to ten percent of cancers are not identified on mammography. A negative report may reinforce clinical impression. Adenosis and dense breasts may obscure an underlying neoplasm. False positive reports average 6 to 10%. Patient will receive a letter notifying them of these results.
== END ==
PROVIDERS: PCP Nurse Practitioner Family; Visit Provider Nurse Practitioner Family
DX: Z12.31 Encounter for screening mammogram for malignant neoplasm of breast (principal); Z80.3 Family history of malignant neoplasm of breast
CPT/HCPCS: 77063; 77067

== ENCOUNTER 2023-07-13 19:22 | Emergency (ER) | payer BC, SELFPAY ==
--- NOTE | 2023-07-13 19:15 | RT.EKG_ITS ---
APPROVED REPORT Exam: Resting ECG Reason for Exam: dizzy Patient Location: E HR:71 bpm ECG Measurements Heart Rate 71 AXIS NM 161 P -6 QRSd 81 QRS 41 QT 399 T 30 QTc 433 Conclusion Sinus rhythm...normal P axis, V-rate 60- 99 PHysician: no stemi
--- NOTE | 2023-07-13 19:15 | DI.RAD_ITS ---
Exam(s) XR CHEST 2V PA LATERAL EXAM: XR CHEST 2V PA LATERAL CLINICAL HISTORY: central chest pain. TECHNIQUE: 2D digital imaging was performed. COMPARISON: No exams were available for comparison FINDINGS: 2 views: Heart size is normal. The mediastinum is not widened. Lungs are clear. No infiltrates nor pleural effusions. IMPRESSION: No acute pulmonary findings. DATA REPOSITORY: RADIATION DOSE DELIVERED:
[2023-07-13 19:18] VITALS: BP 157/80; PULSE 74; RESP 20; TEMP 35; O2SAT 97
--- NOTE | 2023-07-13 19:27 | ED.GENADUL_ITS ---
HPI General Stated Complaint: GenMedical JABARI: 3 Date/Time Provider Initiated Documentation: 07/13/23 19:26. HPI Narrative: Pleasant 57-year-old female with a past medical history of anxiety, hypertension, thyroid dysfunction, presents today for evaluation of what she describes as a panic attack. Patient earlier today received a Kenalog injection into her foot for chronic foot pain/arthritis. Shortly thereafter while she was driving home she felt quite panicked, mild amount of chest pressure, and felt extremely anxious. She has had symptoms identical to this in the past which she describes as previous anxiety attacks. She denies any personal or cardiac history. She denies any chest pain or discomfort otherwise. She denies any pleuritic chest pain. No other complaints at this time. Related Data Home Medications Medication Instructions Recorded Confirmed levothyroxine 75 mcg tablet 75 mcg PO DAILY #90 tabs 04/08/15 07/13/23 lisinopril 5 mg tablet 5 mg PO DAILY 02/22/20 07/13/23 meloxicam 15 mg tablet 15 mg PO DAILY PRN 02/22/20 07/13/23 aspirin 81 mg tablet,delayed 81 mg PO DAILY 12/22/20 07/13/23 release fluticasone propionate 50 1 spray intranasal DAILY 12/22/20 07/13/23 mcg/actuation nasal spray,suspension omeprazole 20 mg capsule,delayed 20 mg PO DAILY 12/22/20 07/13/23 release Allergies Allergy/AdvReac Type Severity Reaction Status Date / Time egg Allergy Severe Anaphylaxsi Unverified 07/13/23 19:24 s propofol Allergy Severe Swelling Unverified 07/13/23 19:24 neck and throat Review of Systems All systems reviewed & are unremarkable except as noted in HPI and below PFSH All Active Problems Anxiety (Chronic) Abnormal mammogram of right breast (Acute) Hyperplastic colon polyp (Acute) Diverticula of colon (Acute) Tubulovillous adenoma (Acute 12/22/15) Acquired hypothyroidism (Acute 10/17/14) Fibroid uterus (Acute) Hypothyroid (Chronic) Medical History Family history of colon cancer in mother Constipation Dyspareunia Ventricular bigeminy Hypertension Stress incontinence Fatigue Iron deficiency Family history of breast cancer Surgical History Hx of colonoscopy (~05/08/21) History of back surgery I beleive they fused some discs together History of tubal ligation Social History Smoking/Tobacco Use Status: Former Tobacco Use Quit Date: 07/04/87 Smoking risk assessment performed?: Yes Alcohol Intake: current Alcohol Intake frequency: a few times a month Drug use: Never Substance use type: does not use Do you feel safe at home: Yes Additional Social history: lives alone Female Reproductive History Menstrual Age of Menarche: 10 control method: permanent sterilization Menopause type: natural History History 4 Para 1 Hx # Term Pregnancies Multiple births Hx # Pregnancies Ectopic pregnancies AB induced Hx Number of Living Children AB spontaneous Exam Narrative Exam Narrative: 1.Const: Well-nourished, Well-developed, appearing stated age 2.Eyes: PERRL, no conjunctival injection, and symmetrical lids. 3.ENT: Atraumatic external nose and ears. Moist MM. Neck: Symmetric, trachea midline, No thyromegaly. 4.CVS: +S1/S2, No murmurs or gallops. Peripheral pulses 2+ and equal in all extremities. Brisk capillary refill in all extremities. 5.RESP: Unlabored respiratory effort. Clear to auscultation bilaterally. No wheezes rales or rhonchi 6.GI: Soft, Nontender/Nondistended, No hepatosplenomegaly. No guarding or rebound. 7.MSK: Normocephalic/Atraumatic, Extremities w/o deformity or ttp No cyanosis or clubbing, Normal movement of all extremities 8.Skin: Warm, Dry. No rashes or lesions. 9.Neuro: graphic technician II-XII grossly intact. Sensation grossly intact, no focal neurologic deficits. 10.Psych: (AAO) x3. Quite anxious appearing Course Vital Signs Vital signs: Vital Signs Temperature 35 C L 07/13/23 19:18 Pulse 74 07/13/23 19:18 Respiratory Rate 20 07/13/23 19:18 Blood Pressure 157/80 H 07/13/23 19:18 Pulse Oximetry 97 07/13/23 19:18 Temperature 35 C L 07/13/23 19:18 Temperature Source Skin 07/13/23 19:18 Pulse 74 07/13/23 19:18 Respiratory Rate 20 07/13/23 19:18 Blood Pressure 157/80 H 07/13/23 19:18 Pulse Oximetry 97 07/13/23 19:18 Oxygen Delivery Method Room Air 07/13/23 19:18 Oxygen Flow Rate 0 07/13/23 19:18 Medical Decision Making Pleasant 57-year-old female with a past medical history of anxiety, hypertension, thyroid dysfunction, presents today for evaluation of what she describes as a panic attack. Patient earlier today received a Kenalog injection into her foot for chronic foot pain/arthritis. Shortly thereafter while she was driving home she felt quite panicked, mild amount of chest pressure, and felt extremely anxious. She has had symptoms identical to this in the past which she describes as previous anxiety attacks. She denies any personal or cardiac history. She denies any chest pain or discomfort otherwise. She denies any pleuritic chest pain. No other complaints at this time. Exam demonstrates a somewhat anxious appearing female, heart rate stable, blood pressure elevated. EKG shows no evidence of STEMI or other significant abnormality. Symptoms appear consistent with panic attack, however with her age and risk factors I do feel that workup is further indicated. Of note she did visit the urgent care prior to arrival for elevated benign appearing EKG. Patient's total amount of symptomatology has been greater than 3 to 4 hours at this point. Will perform laboratory workup, monitor closely and reassess. Patient's workup has returned, no significant abnormalities. No white count bandemia or left shift. Electrolytes normal, renal function stable. Thyroid function normal, EKG normal. Chest x-ray negative for acute process. No evidence of STEMI on EKG. Symptoms appear consistent with mild panic. Patient feels much better at this time. She still does feel minimally anxious but improved otherwise. Chest x-ray negative for acute process. Patient stable for discharge. Will give Valium for home use. Symptoms inconsistent with PE, STEMI or dissection. I have extensively reviewed the treatment plan and discharge instructions with the patient. I have addressed all patient concerns at this time. The patient was made aware of what symptoms to monitor for that would warrant a return to the emergency department. Discussed the plan with the patient, they demonstrate verbal understanding and agreement with our assessment and plan at this time. The documentation in this chart was dictated using [employer] dictation software. Please excuse any dictation errors. FINDINGS: Lungs: Low lung volumes. Pulmonary vasculature grossly normal. No gross pulmonary infiltrates or edema pattern. Pleural spaces: No pleural effusion. No pneumothorax. Heart/Mediastinum: Heart size normal. No tracheal/mediastinal shift. Vasculature: Mild aortic ectasia. Bones/joints: No acute osseous abnormalities are identified. Mild thoracic spondylosis. Bridging ossification across multiple mid thoracic spine segments suggesting diffuse idiopathic skeletal hyperostosis (DISH), unchanged. IMPRESSION: 1. No acute thoracic process. No significant change from 08/02/2016. 2. Midthoracic spine anterior bridging ossifications suspicious for chronic DISH. Quality:SDOH Health Related Social Needs: No Data to Display Discharge Plan Disposition Patient Disposition: Home Discharge Details Clinical Impression: Anxiety Primary Care Provider: Alyson Dolan ED Provider: Milan Whitaker Home Meds and New Rx's Prescriptions: No Action levothyroxine 75 MCG tablet 75 mcg PO DAILY Qty: 90 Rx Instructions: 1 tab PO daily fluticasone propionate 50 mcg/actuation spray,suspension 1 spray intranasal DAILY Rx Instructions: administer into each nostril aspirin 81 mg tablet,delayed release (DR/EC) 81 mg PO DAILY omeprazole 20 mg capsule,delayed release(DR/EC) 20 mg PO DAILY meloxicam 15 mg tablet 15 mg PO DAILY PRN Patient Comments: TK 1 T PO D lisinopril 5 mg tablet 5 mg PO DAILY Patient Comments: TK 1 T PO D Discharge Instructions Instructions: Diazepam (By mouth), Anxiety (ED) Additional Instructions: At this time your workup shows evidence of significant problem with your lungs, chest, or heart. Your x-ray is normal. Your blood work shows no signs of heart attack, and your EKG is normal. I am concerned that your symptoms may be secondary to a component of anxiety. Please take the Valium when you get home and rest. If you notice any worsening of your symptoms, or any new symptoms such as vomiting, diarrhea, fever, chills, shortness of breath, chest pain, numbness, weakness, or fainting , please return immediately to the emergency department for reevaluation. Please follow up with your primary care provider as soon as possible for reassessment and reevaluation. As always, it was a pleasure participating in your medical care today.
[2023-07-13 19:34] VITALS: PULSE 73; RESP 18; O2SAT 97
[2023-07-13] MEDS: Normal Saline 500 ML IV (19:50)
[2023-07-13 19:58] LABS: Abs Immature Grans 0.01 10^3/uL (0.0-0.06); Absolute Basophil Count 0.06 10^3/uL (0.0-0.2); Absolute Eosinophil Count 0.04 10^3/uL (0.0-0.7); Absolute Lymphocyte Count 0.84 10^3/uL (1.2-3.4); Absolute Monocyte Count 0.16 10^3/uL (0.1-0.8); Absolute Neutrophil Count 6.86 10^3/uL (1.2-6.7); Basophils % 0.8; Eosinophils % 0.5; HCT 42.3 % (36.0-46.0); HGB 14.2 g/dL (11.2-15.7); Immature Grans % 0.1; Lymphocytes % 10.5; MCH 28.4 pg (27.0-33.0); MCHC 33.6 % (32.0-36.0); MCV 85 fL (80-95); MPV 9.8 fL (8.0-11.0); Neutrophils % 86.1; Platelet Count 305 10^3/uL (130-400); RDW 13.2 % (11.7-14.6); RDW-SD 41.2 fL; WBC 7.97 10^3/uL (4.4-10.8)
[2023-07-13 20:28] LABS: ALT 31 U/L (14-59); AST 20 U/L (15-37); Albumin 4.4 g/dL (3.4-5.0); Alkaline Phosphatase 92 U/L (46-116); Anion Gap 9.4 mmol/L (3-11); BUN 15 mg/dL (7-18); Bilirubin, Total 0.3 mg/dL (0.2-1.0); CO2 25.6 mmol/L (21.0-32.0); CREATININE 1.1 mg/dL (0.55-1.02); Calcium 9.7 mg/dL (8.5-10.1); Chloride 105 mmol/L (98-107); Estimated GFR 57.88 (mL/min/1.73m2); Glucose 109 mg/dL (74-106); Sodium 140 mmol/L (136-145); TSH (W/Ref FT4) 1.15 uIU/mL (0.36-3.74); Total Protein 8.1 g/dL (6.4-8.2); Troponin I < 50 ng/L (< or =60)
--- NOTE | 2023-07-13 20:33 | DI.VRAD_ITS ---
PROCEDURE INFORMATION: Exam: XR Chest Exam date and time: 07/13/2023 8:04 PM Age: 57 years old Clinical indication: Pain; Chest pressure; Additional info: Central chest pain TECHNIQUE: Imaging protocol: Radiologic exam of the chest. Views: 2 views. COMPARISON: CR CHEST 2 VIEWS PA,LAT 08/02/2016 3:08 PM FINDINGS: Lungs: Low lung volumes. Pulmonary vasculature grossly normal. No gross pulmonary infiltrates or edema pattern. Pleural spaces: No pleural effusion. No pneumothorax. Heart/Mediastinum: Heart size normal. No tracheal/mediastinal shift. Vasculature: Mild aortic ectasia. Bones/joints: No acute osseous abnormalities are identified. Mild thoracic spondylosis. Bridging ossification across multiple mid thoracic spine segments suggesting diffuse idiopathic skeletal hyperostosis (DISH), unchanged. IMPRESSION: 1. No acute thoracic process. No significant change from 08/02/2016. 2. Midthoracic spine anterior bridging ossifications suspicious for chronic DISH. Dictated and Authenticated by: Woo Betancourt MD. Ordering:KAELA Yates MD
[2023-07-13 20:53] VITALS: BP 123/73; PULSE 64; RESP 22; O2SAT 97
[2023-07-13] MEDS: diazePAM 5 MG TAB PO (20:54)
== END 2023-07-13 20:59 | disposition home or self-care (01) ==
PROVIDERS: Emergency Provider Student in an Organized Health Care Education/Training Program; PCP Nurse Practitioner Family
DX: R07.89 Other chest pain (principal); F41.9 Anxiety disorder, unspecified; I10 Essential (primary) hypertension
CPT/HCPCS: 80053; 93005; 96360; 99283; 71046; 84443; 84484; 85025; 93010

== ENCOUNTER 2023-08-08 11:54 | Outpatient (REF) | payer BC, SELFPAY ==
[2023-08-08 15:50] LABS: Anion Gap 5.4 mmol/L (3-11); BUN 16 mg/dL (7-18); CO2 31.6 mmol/L (21.0-32.0); Calcium 9.8 mg/dL (8.5-10.1); Chloride 104 mmol/L (98-107); Glucose 106 mg/dL (74-106); Potassium 4.9 mmol/L (3.5-5.1); Sodium 141 mmol/L (136-145); TSH (W/Ref FT4) 1.41 uIU/mL (0.36-3.74)
== END 2023-08-08 11:55 | disposition home or self-care (01) ==
LOC: NCHCN 11:54
PROVIDERS: PCP Nurse Practitioner Family; Visit Provider Nurse Practitioner Family
DX: I10 Essential (primary) hypertension (principal); E03.9 Hypothyroidism, unspecified
CPT/HCPCS: 80048; 84443

== ENCOUNTER 2023-11-23 08:43 | Outpatient (REF) | payer BC, SELFPAY | END 2023-11-23 08:44 | disposition home or self-care (01) | LOC: LBN 08:43 | PROVIDERS: PCP Nurse Practitioner Family; Visit Provider Physician Assistant Medical | DX: J02.9 Acute pharyngitis, unspecified (principal) | CPT/HCPCS: 87070 ==

== ENCOUNTER 2024-02-02 14:02 | Emergency (ER) | payer BC, SELFPAY ==
[2024-02-02] VITALS (8 sets, daily range): BP systolic 134–166; BP diastolic 65–72; PULSE 54–80; RESP 15–16; TEMP 36.5–37.2; O2SAT 97–100
--- NOTE | 2024-02-02 16:45 | DI.CT_ITS ---
Exam(s) CT LUMBAR SPINE RECONS CT ABDOMEN PELVIS W EXAM: CT ABDOMEN PELVIS W and CT lumbar spine reconstructions CLINICAL HISTORY: pain radiating around lower back to RLQ TECHNIQUE: Imaging Protocol: Axial computed tomography images with coronal and sagittal reformatted images were created and reviewed. CONTRAST MATERIAL: Intravenous: Omnipaque 350 Contrast volume:100 mL Oral: No COMPARISON: CT CT ABDOMEN PELVIS W from 11/21/[address] LUMBAR SPINE RECONS from 02/02/2024 FINDINGS: ABDOMEN: Lung Bases: Normal where visualized. Liver: Normal density. No measurable mass. Portal, Superior Mesenteric, and Splenic Veins: Unremarkable. Gallbladder and Biliary Tract: No radiodense calculus or dilation. Pancreas: Normal density, no abnormal calcifications or inflammatory process. Spleen: Normal. Adrenals: No masses seen. Kidneys: Normal size, contour and axis. No radiodense stones or obstructive uropathy. No masses seen. Abdominal Aorta: Abdominal portion non-dilated. Mild atherosclerotic calcification is present. Bowel: There are few scattered diverticula in the sigmoid colon, but no evidence of acute diverticuli tis. There is no evidence of bowel wall thickening or bowel obstruction. Appendix is unremarkable. Peritoneal Cavity: No ascites, collection or mesenteric inflammatory response. No free air. Lymph Nodes: Within normal limits. Bones: Within normal limits for the patient's age. Soft Tissues: Unremarkable. CT lumbar spine recons: Multilevel degenerative changes are present. No acute fracture or subluxatio n is present. There is a transitional S1 vertebra. Degenerative changes at L5-S1 cause mild-to-mod erate bilateral neural foraminal stenosis. There are degenerative changes at L3-L4 causing moderate central spinal canal stenosis. There also degenerative changes and a diffuse disc bulge at L4-L5 cau sing moderate central spinal canal stenosis. PELVIS: Bladder: Symmetric distention, no gross wall thickening. Reproductive Organs: Unremarkable as visualized. Lymph Nodes: Within normal limits. Bones: Within normal limits for the patient's age. IMPRESSION: 1. There is a normal appendix. No evidence of nephrolithiasis or obstructive uropathy. 2. No evidence of cholelithiasis. No biliary ductal dilatation. 3. Multilevel degenerative changes in the lumbar spine resulting in central spinal canal and neural f oraminal stenosis as described above. 4. No acute fracture or subluxation is seen in the lumbar spine. RADIATION DOSE DELIVERED: Total DLP DATA REPOSITORY: All CT scans at this facility are submitted to the National Radiology Data Registry (NRDR) Dose Index Registry (DIR) with the [employer] (ACR). RADIATION OPTIMIZATION: All CT scans at this facility use at least one of these dose optimization te chniques: automated exposure control; mA and/or kV adjustment per patient size (includes targeted exa ms where dose is matched to clinical indication); or iterative reconstruction.
--- NOTE | 2024-02-02 16:50 | ED.GENADUL_ITS ---
Discharge Plan Disposition Patient Disposition: Home Discharge Details Clinical Impression: Lumbar back pain with radiculopathy affecting lower extremity, Spinal stenosis Primary Care Provider: Alyson Dolan ED Provider: Kesha Vaca Home Meds and New Rx's Prescriptions: New prednisone 20 mg tablet 40 mg PO DAILY 5 Days Qty: 10 0RF Continued levothyroxine 75 MCG tablet 75 mcg PO DAILY Qty: 90 Rx Instructions: 1 tab PO daily fluticasone propionate 50 mcg/actuation spray,suspension 1 spray intranasal DAILY Rx Instructions: administer into each nostril aspirin 81 mg tablet,delayed release (DR/EC) 81 mg PO DAILY omeprazole 20 mg capsule,delayed release(DR/EC) 20 mg PO DAILY meloxicam 15 mg tablet 15 mg PO DAILY PRN Patient Comments: TK 1 T PO D lisinopril 5 mg tablet 5 mg PO DAILY Patient Comments: TK 1 T PO D Discharge Instructions Instructions: Spinal Stenosis Strengthening Exercises Additional Instructions: Please call [facility] first thing in the morning to schedule a follow up appointment for evaluation and management of your lower back pain. Continue with physical therapy as scheduled. I have prescribed for you prednisone to help with inflammation. I am recommending you also continue using Tylenol, lidocaine patches, heat/ice when you are not wearing the lidocaine patch. Gentle stretching may also be helpful. Return to emergency care if you develop new fevers associated back pain, change in bowel or bladder function, numbness in your underwear area over the legs, leg weakness, difficulty walking, or if you are very worried you need to be rechecked again immediately. Referrals: Alyson Dolan [Primary Care Provider] - [facility] General Date/Time Provider Initiated Documentation: 02/02/24 14:09 . [facility] Narrative: Maryana is a 58 -year-old female with h/o chronic LBP and fusion of L1/L2 who presents to the emergency department for evaluation of lower back pain that radiates around to her RLQ x 2 days after bending and twisting while shredding papers. She reports that she has also had nausea accompanying this pain, which is aggravated by movement. She denies fever/chills, recent URI sx (congestion, cough, sore throat), vomiting, change in bowel or bladder function, hematuria, saddle anesthesia, new leg weakness, parasthesias, or difficulty walking. She was seen by PT today and told to come to the ED for evaluation. Physical exam reassuring. Negative straight leg raise. No T/L spine tende rness/stepoffs/deformity or paraspinal tenderness. No CVA tenderness. Abdomen is soft, nondistended, nontender to palpation with normoactive BS. 5/5 muscle strength to lower extemities. Full painless extension/flexion of leg, as well as full internal/external rotation of hip. D/dx includes but is not limited to: lower back pain with sciatica in L1 dermatome, RLQ pathology such as appendicitis, nephrolithiasis less likely I independently interpreted the following tests: CBC and CMP reassuring. CT abdomen/pelvis with L-spine remarkable for mild to moderate bilateral neural for minimal stenosis and multilevel degenerative changes. No acute fracture or subluxation, cholelithiasis, appendicitis, or other intra-abdominal pathology noted. History and presentation consistent with lower back pain with radiculopathy along the L1 dermatome. Will treat with prednisone and have patient continue to follow with primary care and physical therapy, including referral to spinal specialist as needed. Reviewed discharge instructions with patient, including symptomatic management and red flags indicating need for return to emergency care. She is agreeable with plan of care. Related Data Home Medications ?Medication ?Instructions ?Recorded ?Confirmed levothyroxine 75 mcg tablet 75 mcg PO DAILY #90 tabs 04/08/15 02/02/24 lisinopril 5 mg tablet 5 mg PO DAILY 02/22/20 02/02/24 meloxicam 15 mg tablet 15 mg PO DAILY PRN 02/22/20 02/02/24 aspirin 81 mg tablet,delayed 81 mg PO DAILY 12/22/20 02/02/24 release fluticasone propionate 50 1 spray intranasal DAILY 12/22/20 02/02/24 mcg/actuation nasal spray,suspension omeprazole 20 mg capsule,delayed 20 mg PO DAILY 12/22/20 02/02/24 release prednisone 20 mg tablet 40 mg (2 x 20 mg) PO DAILY 5 days 02/02/24 #10 tabs Previous Rx's ?Medication ?Instructions ?Recorded prednisone 20 mg tablet 40 mg (2 x 20 mg) PO DAILY 5 days 02/02/24 #10 tabs Allergies Allergy/AdvReac Type Severity Reaction Status Date / Time egg Allergy Severe Anaphylaxsi Unverified 02/02/24 14:10 s propofol Allergy Severe Swelling Unverified 02/02/24 14:10 neck and throat General Stated Complaint: Nk/Back Pain JABARI: 3 Review of Systems Narrative: see HPI Exam Const General: cooperative, healthy appearing, comfortable and no acute distress Nutritional Appearance: average body habitus Resp Effort & Inspection: normal respiratory effort and able to speak in complete sentences Auscultation: clear to auscultation bilaterally Cardio Rate: regular rate Rhythm: regular rhythm GI Inspection: normal to inspection and non-distended Palpation: soft and not firm Auscultation: normal bowel sounds Back/Spine/Pelvis Back: no CVA tenderness Cervical Spine: normal cervical lordosis Thoracic/Lumbar Spine: thoracic and lumbar spine normal to inspection, straight leg raise negative bilaterally and No paraspinal tenderness Pelvis: no buttock tenderness Neuro General: patient alert and patient oriented x3 Cognition: normal cognition Speech: speech normal Gait: normal gait Motor: muscle tone normal throughout and strength 5/5 throughout Sensory Exam: no sensory deficits noted Extrem General: full ROM Course Vital Signs Vital signs: Vital Signs Temperature 36.5 C 02/02/24 14:11 Pulse 64 02/02/24 14:11 Respiratory Rate 16 02/02/24 14:11 Blood Pressure 134/72 02/02/24 14:11 Pulse Oximetry 100 02/02/24 14:11 Temperature 36.5 C 02/02/24 14:11 Temperature Source Temporal Artery Scan 02/02/24 14:11 Pulse 64 02/02/24 14:11 Respiratory Rate 16 02/02/24 14:11 Respiratory Effort Normal, Non-Labored 02/02/24 14:13 Blood Pressure 134/72 02/02/24 14:11 Blood Pressure Position Sitting 02/02/24 14:11 Pulse Oximetry 100 02/02/24 14:11 Oxygen Delivery Method Room Air 02/02/24 14:11 Oxygen Flow Rate 0 02/02/24 14:11 Pain Level 9 02/02/24 14:11 Medical Decision Making Imaging Data Radiologic Study: Radiologist's impression: Exam(s) CT LUMBAR SPINE RECONS CT ABDOMEN PELVIS W EXAM: CT ABDOMEN PELVIS W and CT lumbar spine reconstructions CLINICAL HISTORY: pain radiating around lower back to RLQ TECHNIQUE: Imaging Protocol: Axial computed tomography images with coronal and sagittal reformatted images were created and reviewed. CONTRAST MATERIAL: Intravenous: Omnipaque 350 Contrast volume:100 mL Oral: No COMPARISON: CT CT ABDOMEN PELVIS W from 11/21/[address] LUMBAR SPINE RECONS from 02/02/2024 FINDINGS: ABDOMEN: Lung Bases: Normal where visualized. Liver: Normal density. No measurable mass. Portal, Superior Mesenteric, and Splenic Veins: Unremarkable. Gallbladder and Biliary Tract: No radiodense calculus or dilation. Pancreas: Normal density, no abnormal calcifications or inflammatory process. Spleen: Normal. Adrenals: No masses seen. Kidneys: Normal size, contour and axis. No radiodense stones or obstructive uropathy. No masses seen. Abdominal Aorta: Abdominal portion non-dilated. Mild atherosclerotic calcification is present. Bowel: There are few scattered diverticula in the sigmoid colon, but no evidence of acute diverticulitis. There is no evidence of bowel wall thickening or bowel obstruction. Appendix is unremarkable. Peritoneal Cavity: No ascites, collection or mesenteric inflammatory response. No free air. Lymph Nodes: Within normal limits. Bones: Within normal limits for the patient's age. Soft Tissues: Unremarkable. CT lumbar spine recons: Multilevel degenerative changes are present. No acute fracture or subluxation is present. There is a transitional S1 vertebra. Degenerative changes at L5-S1 cause yjit-di-jrjmupiv bilateral neural foraminal stenosis. There are degenerative changes at L3-L4 causing moderate central spinal canal stenosis. There also degenerative changes and a diffuse disc bulge at L4-L5 causing moderate central spinal canal stenosis. PELVIS: Bladder: Symmetric distention, no gross wall thickening. Reproductive Organs: Unremarkable as visualized. Lymph Nodes: Within normal limits. Bones: Within normal limits for the patient's age. IMPRESSION: 1. There is a normal appendix. No evidence of nephrolithiasis or obstructive uropathy. 2. No evidence of cholelithiasis. No biliary ductal dilatation. 3. Multilevel degenerative changes in the lumbar spine resulting in central spinal canal and neural foraminal stenosis as described above. 4. No acute fracture or subluxation is seen in the lumbar spine. Quality:SDOH Health Related Social Needs: No Data to Display PFSH All Active Problems (Updated 02/02/24 @ 19:02 by Kesha March) Spinal stenosis (Acute) Lumbar back pain with radiculopathy affecting lower extremity (Acute) Abnormal mammogram of right breast (Acute) Hyperplastic colon polyp (Acute) Diverticula of colon (Acute) Tubulovillous adenoma (Acute 12/22/15) Acquired hypothyroidism (Acute 10/17/14) Fibroid uterus (Acute) Hypothyroid (Chronic) Medical History Family history of colon cancer in mother Constipation Dyspareunia Ventricular bigeminy Hypertension Stress incontinence Fatigue Iron deficiency Family history of breast cancer Surgical History Hx of colonoscopy (~05/08/21) History of back surgery I beleive they fused some discs together History of tubal ligation Social History Smoking/Tobacco Use Status: Former Tobacco Use Quit Date: 07/04/87 Smoking risk assessment performed?: Yes Alcohol Intake: current Alcohol Intake frequency: a few times a month Drug use: Never Substance use type: does not use Housing: house Do you feel safe at home: Yes Additional Social history: lives alone Female Reproductive History Menstrual Age of Menarche: 10 control method: permanent sterilization Menopause type: natural History History 4 Para 1 Hx # Term Pregnancies Multiple births Hx # Pregnancies Ectopic pregnancies AB induced Hx Number of Living Children AB spontaneous
[2024-02-02 16:59] LABS: Abs Immature Grans 0.03 10^3/uL (0.0-0.06); Absolute Basophil Count 0.05 10^3/uL (0.0-0.2); Absolute Eosinophil Count 0.19 10^3/uL (0.0-0.7); Absolute Monocyte Count 0.64 10^3/uL (0.1-0.8); Absolute Neutrophil Count 6.12 10^3/uL (1.2-6.7); Basophils % 0.5 %; Eosinophils % 2.1 %; HCT 41.3 % (36.0-46.0); HGB 13.5 g/dL (11.2-15.7); Immature Grans % 0.3 %; Lymphocytes % 23.8 %; MCH 28.4 pg (27.0-33.0); MCHC 32.7 % (32.0-36.0); MCV 87 fL (80-95); MPV 10.1 fL (8.0-11.0); Monocytes % 6.9 %; Neutrophils % 66.4 %; Platelet Count 268 10^3/uL (130-400); RBC 4.76 10^6/uL (3.93-5.22); RDW 13.9 % (11.7-14.6); RDW-SD 44.4 fL; WBC 9.23 10^3/uL (4.4-10.8)
[2024-02-02 17:15] LABS: ALT 35 U/L (14-59); AST 23 U/L (15-37); Albumin 4.1 g/dL (3.4-5.0); Alkaline Phosphatase 84 U/L (46-116); Anion Gap 7.9 mmol/L (3-11); BUN 8 mg/dL (7-18); Bilirubin, Total 0.48 mg/dL (0.2-1.0); CO2 30.1 mmol/L (21.0-32.0); CREATININE 1.1 mg/dL (0.55-1.02); Chloride 108 mmol/L (98-107); Estimated GFR 57.52 (mL/min/1.73m2); Glucose 86 mg/dL (74-106); Lipase 39 U/L (16-77); Potassium 3.9 mmol/L (3.5-5.1); Sodium 146 mmol/L (136-145); Total Protein 7.5 g/dL (6.4-8.2)
[2024-02-02] MEDS: Normal Saline - Diluent 50 ML VIAL IJ (17:45)
[2024-02-02] MEDS: Omnipaque 350 MG/ML 100 ML BTL IJ (17:46)
[2024-02-02] MEDS: Ketorolac 15 MG/ML VIAL (18:08)
[2024-02-02] MEDS: Lidocaine 5% Patch 1 PATCH (18:08)
[2024-02-02 19:17] LABS: Bilirubin Negative (Negative); Blood Negative (Negative); Clarity Clear (Clear); Glucose Negative (Negative); Ketones Negative (Negative); Leukocyte Esterase Negative (Negative); Nitrite Negative (Negative); Specific Gravity 1.015 (1.005-1.025); Urobilinogen 0.2 mg/dL (Up to 0.2)
--- NOTE | 2024-02-03 03:44 | NUR.NOTE ---
Referral faxed to [facility]. Alyson Dolan to f/u in 2-3 weeks for low back pain.Nursing Note:
--- NOTE | 2024-02-04 15:24 | PDOC.CMPRO ---
Date of service: 02/04/24 Time of Service: 15:24 Care Management Progress Note Progress Note Text Progress Note Text: Maryana was seen in the ER on 02/02/24 for low back pain. PCP follow up is recommended in 2-3 weeks. CM faxed request to Alyson Dolan. SDTX(Care Management) Screening Will the Patient Participate in the Screening?: Yes Do you worry about having a steady place to live?: no Problems where you live: no known problems In the past 12 months, have you had to go without electric, gas, oil or water in your home?: no Have you or anyone in your house had to go without enough food to eat?: no Has lack of transportation kept you from medical appointments or from doing things needed for daily living?: no Has anyone in your support network made you feel unsafe for any reason?: no
--- NOTE | 2024-02-04 15:33 | CMPROGNOTE_ITS ---
Date of service: 02/04/24 Time of Service: 15:33 Care Management Progress Note Progress Note Text Progress Note Text: Seen in ER on 02/02/24, needs PCP follow up in 2-3 weeks for low back pain. CM sent request to Alyson Dolan's office. SDOH(Care Management) Screening Will the Patient Participate in the Screening?: Yes Do you worry about having a steady place to live?: no Problems where you live: no known problems In the past 12 months, have you had to go without electric, gas, oil or water in your home?: no Have you or anyone in your house had to go without enough food to eat?: no Has lack of transportation kept you from medical appointments or from doing thi ngs needed for daily living?: no Has anyone in your support network made you feel unsafe for any reason?: no
== END 2024-02-02 19:50 | disposition home or self-care (01) ==
PROVIDERS: Emergency Provider Nurse Practitioner Family; PCP Nurse Practitioner Family
DX: M54.16 Radiculopathy, lumbar region (principal); R53.1 Weakness; M48.07 Spinal stenosis, lumbosacral region
CPT/HCPCS: 80053; 83690; 96374; 99285; 74177; 81003; 85025; 99283; J1885; J3490

== ENCOUNTER 2024-04-17 12:53 | Outpatient (REF) | payer BC, SELFPAY ==
[2024-04-17 14:12] LABS: Abs Immature Grans 0.03 10^3/uL (0.0-0.06); Absolute Basophil Count 0.06 10^3/uL (0.0-0.2); Absolute Eosinophil Count 0.24 10^3/uL (0.0-0.7); Absolute Lymphocyte Count 1.88 10^3/uL (1.2-3.4); Absolute Monocyte Count 0.53 10^3/uL (0.1-0.8); Absolute Neutrophil Count 4.38 10^3/uL (1.2-6.7); Basophils % 0.8 %; Eosinophils % 3.4 %; HGB 13.5 g/dL (11.2-15.7); Immature Grans % 0.4 %; Lymphocytes % 26.4 %; MCH 28.2 pg (27.0-33.0); MCHC 32.1 % (32.0-36.0); MCV 88 fL (80-95); MPV 10.3 fL (8.0-11.0); Monocytes % 7.4 %; Neutrophils % 61.6 %; Platelet Count 283 10^3/uL (130-400); RBC 4.79 10^6/uL (3.93-5.22); RDW 13.5 % (11.7-14.6); RDW-SD 43.9 fL; WBC 7.12 10^3/uL (4.4-10.8)
[2024-04-17 14:15] LABS: ESR 6 mm/hr (0-30)
[2024-04-17 14:31] LABS: Iron 59 ug/dL (50-170); Total Iron Binding Capacity 359 ug/dL (250-450); Transferrin Sat 16 % (15-50)
[2024-04-17 14:49] LABS: ALT 33 U/L (14-59); AST 22 U/L (15-37); Albumin 4.1 g/dL (3.4-5.0); Alkaline Phosphatase 99 U/L (46-116); Anion Gap 7.7 mmol/L (3-11); BUN 8 mg/dL (7-18); Bilirubin, Total 0.37 mg/dL (0.2-1.0); CO2 30.3 mmol/L (21.0-32.0); CREATININE 0.9 mg/dL (0.55-1.02); Calcium 9.4 mg/dL (8.5-10.1); Calculated LDL 113 mg/dL (<100); Chloride 108 mmol/L (98-107); Cholesterol 204 mg/dL (<200); Estimated GFR 73.19 (mL/min/1.73m2); Ferritin 56 ng/mL (8-252); Glucose 105 mg/dL (74-106); HDL Cholesterol 42 mg/dL (40-60); Magnesium 2.3 mg/dL (1.8-2.4); Potassium 4.4 mmol/L (3.5-5.1); Sodium 146 mmol/L (136-145); TSH (W/Ref FT4) 1.47 uIU/mL (0.36-3.74); Total Protein 7.3 g/dL (6.4-8.2); Triglyceride 245 mg/dL (<150); Vitamin B12 443 pg/mL (193-986)
[2024-04-17 14:55] LABS: C-Reactive Protein < 0.50 mg/dL (<or=0.5)
[2024-04-17 22:26] LABS: Rheumatoid Factor <8.6 IU/mL (<12.0)
[2024-04-18 08:42] LABS: Cyclic Citrullinated Peptide <2.5 U/mL (<5.0)
[2024-04-18 16:05] LABS: ANA Interpretation Negative (Negative)
== END 2024-04-17 12:54 | disposition home or self-care (01) ==
LOC: NCHCN 12:53
PROVIDERS: PCP Nurse Practitioner Family; Visit Provider Nurse Practitioner Family
DX: I10 Essential (primary) hypertension (principal); E78.5 Hyperlipidemia, unspecified; E03.9 Hypothyroidism, unspecified
CPT/HCPCS: 80053; 80061; 82306; 85652; 86200; 82607; 82728; 83540; 83550; 83735; 84443; 85025; 86038; 86140; 86431

== ENCOUNTER 2024-05-04 00:57 | Outpatient (CLI) | payer BC, SELFPAY ==
--- NOTE | 2024-05-04 08:41 | DI.MAMMO_ITS ---
Exam(s) MAMMO SCREENING EXAM: MAMMO SCREENING CLINICAL HISTORY: Z12.31 SCREENING MAMMO TECHNIQUE: Mammograms were interpreted according to the usual protocol including computer analysis w [email or web address] CAD system, tomosynthesis and C-view imaging. COMPARISON: 2014 through 2022 FINDINGS: The breasts are composed of mainly fatty density , Breast Density category A. No suspicious masses or suspicious microcalcifications are seen. No skin thickening or abnormal axillary lymph nodes are seen. There has been no significant change from prior exams. IMPRESSION: BI-RADS Category 1, Negative mammogram Yearly screening mammography is recommended. Breast Density - Category A, fatty density. A negative radiographic report should not delay biopsy if a dominant or clinically suspicious mass is present. Up to ten percent of cancers are not identified on mammography. A negative report may reinforce clinical impression. Adenosis and dense breasts may obscure an underlying neoplasm. False positive reports average 6 to 10%. Patient will receive a letter notifying them of these results.
== END 2024-05-04 01:17 ==
LOC: DI 00:58
PROVIDERS: PCP Nurse Practitioner Family; Visit Provider Nurse Practitioner Family
DX: Z12.31 Encounter for screening mammogram for malignant neoplasm of breast (principal)
CPT/HCPCS: 77063; 77067

== ENCOUNTER 2024-06-04 16:04 | Outpatient (CLI) | payer BC, SELFPAY ==
--- NOTE | 2024-06-04 09:09 | DI.RAD_ITS ---
Exam(s) XR HAND LT COMPLETE EXAM: XR HAND LT COMPLETE CLINICAL HISTORY: pain. TECHNIQUE: 2D digital imaging was performed of the left hand. Three views were obtained. AP, later al and oblique views were obtained. COMPARISON: No priors for comparison. FINDINGS: BONES: No acute fracture is present. No bony destructive lesion is seen. JOINTS: No dislocation present. Wwtd-kw-cofqgdeq degenerative changes are seen in the left hand kristopher cterized by joint space narrowing and osteophytes. The findings are most marked at the DIP joints of the fingers and the interphalangeal joint of the thumb. SOFT TISSUE: Normal. IMPRESSION: Qpfa-op-rrjhlqxa osteoarthritis of the left hand. DATA REPOSITORY: RADIATION DOSE DELIVERED:
--- NOTE | 2024-06-04 09:09 | DI.RAD_ITS ---
Exam(s) XR HAND RT COMPLETE EXAM: XR HAND RT COMPLETE CLINICAL HISTORY: pain. TECHNIQUE: 2D digital imaging was performed of the right hand. Three images were obtained. AP, late ral and oblique views were obtained. COMPARISON: No exams were available for comparison FINDINGS: BONES: No acute fracture is present. No bony destructive lesion is seen. JOINTS: No dislocation present. There are mild degenerative changes seen in the right hand characteri zed by joint space narrowing and osteophytes. The findings are most prominent at the interphalangeal joint of the thumb. SOFT TISSUE: Normal. IMPRESSION: Mild osteoarthritis of the right hand. DATA REPOSITORY: RADIATION DOSE DELIVERED:
== END 2024-06-04 16:05 | disposition home or self-care (01) ==
LOC: DIORS 16:05
PROVIDERS: PCP Nurse Practitioner Family; Visit Provider Physician Assistant
DX: M19.041 Primary osteoarthritis, right hand (principal); M19.042 Primary osteoarthritis, left hand
CPT/HCPCS: 73130

== ENCOUNTER 2024-06-04 16:05 | Outpatient (REF) | payer BC, SELFPAY ==
--- NOTE | 2024-06-04 15:30 | PAPFT_PTH ---
PATIENT: Maryana Carmona LOC: [facility] U#:[id number] AGE/SX: 58/F ROOM: RE06/04/[address]: Asia Love DO : 1965 BED: DIS: 06/04/2024 SPEC #: [id number] RECD: 06/04/24 18:12 STATUS: [facility] REQ #: [id number] JACKI: 06/04/24 15:[address]: Asia Love DEPT: [facility] Cytology RECD BY: Mayra Romero ENTERED: 06/04/24 18:12 SP TYPE: PAPFT OTHR DR: Alyson Dolan Tissues: 1 - CX/ENDOCX FOR PAP SMEARS Procedures: PAP THIN PREP/[facility] Screening HPV DNA PROBE Comments: [id number] (HPV 16 & 18/45)
== END 2024-06-04 16:06 | disposition home or self-care (01) ==
LOC: LBN 16:05
PROVIDERS: PCP Nurse Practitioner Family; Visit Provider Obstetrics & Gynecology
DX: M19.049 Primary osteoarthritis, unspecified hand (principal); M65.4 Radial styloid tenosynovitis [de Quervain]
CPT/HCPCS: 88142; 87624

== ENCOUNTER 2024-09-20 01:07 | Outpatient (CLI) | payer BC, SELFPAY ==
--- NOTE | 2024-09-20 09:11 | DI.RAD_ITS ---
Exam(s) XR FOOT LT COMPLETE EXAM: XR FOOT LT COMPLETE CLINICAL HISTORY: Left foot pain,M79.672. TECHNIQUE: 2D digital imaging was performed. Three views. COMPARISON: CR XR FOOT RT COMPLETE from 02/22/2020 FINDINGS: BONES: No acute fracture is present. No bony destructive lesion is seen. Prominent heel spurs. JOINTS: No dislocation present. Xuma-kc-rytfkiwy degenerative changes of the midfoot and 1st metata rsal phalangeal joint. SOFT TISSUE: Normal. IMPRESSION: Degenerative changes and heel spurs. DATA REPOSITORY: RADIATION DOSE DELIVERED:
== END 2024-09-20 01:27 ==
LOC: DI 01:07
PROVIDERS: PCP Nurse Practitioner Family; Visit Provider Podiatrist
DX: M19.072 Primary osteoarthritis, left ankle and foot (principal); M77.32 Calcaneal spur, left foot
CPT/HCPCS: 73630

== ENCOUNTER 2024-12-06 13:53 | Outpatient (REF) | payer BC, SELFPAY ==
[2024-12-06 16:29] LABS: Bacteria Rare HPF (Negative); C & S Indicated? C&S Done As Ordered; Crystals Negative HPF (Negative); Epithelial Cells Rare HPF (Negative); Mucus Trace (Negative); Other Cells Rare Transitional (Negative); WBC >50 HPF (0-5)
== END 2024-12-06 13:54 | disposition home or self-care (01) ==
LOC: LBN 13:53
PROVIDERS: PCP Nurse Practitioner Family; Visit Provider Physician Assistant Medical
DX: R30.0 Dysuria (principal)
CPT/HCPCS: 87077; 81015; 87086; 87186; 87480; 87510; 87660

== ENCOUNTER 2024-12-26 13:11 | Outpatient (REF) | payer BC, SELFPAY | END 2024-12-26 13:12 | disposition home or self-care (01) | LOC: LBN 13:11 | PROVIDERS: PCP Nurse Practitioner Family; Visit Provider Obstetrics & Gynecology | DX: R30.0 Dysuria (principal); R82.89 Other abnormal findings on cytological and histological examination of urine | CPT/HCPCS: 87086 ==

== ENCOUNTER 2024-12-28 11:41 | Outpatient (REF) | payer BC, SELFPAY | END 2024-12-28 11:42 | disposition home or self-care (01) | LOC: LBN 11:41 | PROVIDERS: PCP Nurse Practitioner Family; Visit Provider Nurse Practitioner Family | DX: N76.0 Acute vaginitis (principal) | CPT/HCPCS: 87480; 87510; 87660 ==

== ENCOUNTER 2025-01-14 02:24 | Outpatient (CLI) | payer BC, SELFPAY ==
--- NOTE | 2025-01-14 14:30 | DI.MRI_ITS ---
Exam(s) MR LOWER EXTREMITY LT WO EXAM: MR LOWER EXTREMITY LT WO CLINICAL HISTORY: 2nd MPJ pain/? bursa,? plantar plate tear,bursal cyst,hammertoe lt foot,. TECHNIQUE: Multiplanar multisequence MRI was performed. COMPARISON: CR XR FOOT LT COMPLETE from 09/20/2024 FINDINGS: BONES/JOINTS: No evidence of fracture. There is a benign-appearing cyst in the proximal metaphysis of the 4th metatarsal. There are mild degenerative changes seen at the 1st metatarsophalangeal joint. At the 2nd metatarsophalangeal joint, there is no evidence of avascular necrosis. There are mild degenerative changes present. There is a small amount of fluid in the joint space. The adjacent tendons and ligaments appear intact. No adjacent soft tissue mass is appreciated.There is a large plantar calcaneal spur. LIGAMENTS: The medial and lateral collateral ligaments are intact. MUSCULOTENDINOUS STRUCTURES: Visualized portion of the planar fascia is unremarkable. The visualized intrinsic muscles and tendons of the foot are unremarkable. SOFT TISSUES: There is mild edema in the soft tissues on the dorsal aspect of the foot at the level of the 2nd metatarsophalangeal joint.It is superficial to the tendons and ligaments. OTHER FINDINGS: None. IMPRESSION: 1. Mild degenerative changes are seen at the 2nd metatarsophalangeal joint. There does appear to be a small joint effusion. 2. No definite evidence of a tendon or ligament tear. No soft tissue mass is appreciated. 3. Mild subcutaneous edema is seen along the dorsum of the foot at the level of the 2nd MTP joint. DATA REPOSITORY:
== END 2025-01-14 02:44 ==
LOC: DI 02:24
PROVIDERS: PCP Nurse Practitioner Family; Visit Provider Podiatrist
DX: M77.42 Metatarsalgia, left foot (principal); M20.42 Other hammer toe(s) (acquired), left foot
CPT/HCPCS: 73718

== ENCOUNTER 2025-05-10 17:21 | Outpatient (REF) | payer BC, SELFPAY ==
[2025-05-10 19:05] LABS: Hemoglobin A1C 5.9 % (<5.7)
[2025-05-10 19:16] LABS: Anion Gap 8.9 mmol/L (3-11); BUN 15 mg/dL (7-18); CO2 29.1 mmol/L (21.0-32.0); Calcium 8.4 mg/dL (8.5-10.1); Chloride 104 mmol/L (98-107); Cholesterol 203 mg/dL (<200); Glucose 99 mg/dL (74-106); HDL Cholesterol 37 mg/dL (>or=50); Potassium 3.9 mmol/L (3.5-5.1); Sodium 142 mmol/L (136-145); TSH 2.29 uIU/mL (0.36-3.74)
== END 2025-05-10 17:22 | disposition home or self-care (01) ==
LOC: NCHCN 17:21
PROVIDERS: PCP Nurse Practitioner Family; Visit Provider Nurse Practitioner Family
DX: R73.9 Hyperglycemia, unspecified (principal); E03.9 Hypothyroidism, unspecified; I10 Essential (primary) hypertension; E78.5 Hyperlipidemia, unspecified
CPT/HCPCS: 80048; 80061; 83036; 84443

== ENCOUNTER → 2025-06-21 00:20 | Outpatient (CLI) | payer BC, SELFPAY ==
--- NOTE | 2025-06-21 07:30 | DI.MAMMO_ITS ---
Exam(s) MAMMO SCREENING EXAM: MAMMO SCREENING CLINICAL HISTORY: screening,z12.39 TECHNIQUE: Bilateral full field digital CC and MLO mammographic images were obtained with 3D tomosynthesis and utilizing computer aided detection (CAD). COMPARISON: Comparison is made with prior examinations. FINDINGS: Masses/Architectural Distortion: No suspicious masses or areas of architectural distortion are present. Microcalcifications: No suspicious pleomorphic-type are seen. Skin Thickening/Nipple Retraction: None. IMPRESSION: 1. No significant interval change with no specific features of malignancy noted. 2. Unless there is more urgent need, screening mammography is recommended, as per [employer] guidelines. BI-RADS Category 1 - Negative Breast Density - Category B - There are scattered areas of fibroglandular density. Breast density Category C or D implies that the patient has dense breast tissue. Dense breast tissue can make it harder to find cancer on a mammogram. Dense breast tissue is also associated with an increased risk of breast cancer. This information about the result of the mammogram report was provided to the patient to raise their awareness. Use this report when you speak with the patient about their risks for breast cancer, which includes their family history. At that time, you may recommend additional screening tests (Ultrasound or MRI) as these tests may add significant information. A negative radiographic report should not delay biopsy if a dominant or clinically suspicious mass is present. Up to ten percent of cancers are not identified on mammography. A negative report may reinforce clinical impression. Adenosis and dense breasts may obscure an underlying neoplasm. False positive reports average 6 to 10%. Patient will receive a letter notifying them of these results.
== END ==
LOC: DI 00:20
PROVIDERS: PCP Nurse Practitioner Family; Visit Provider Obstetrics & Gynecology
DX: Z12.31 Encounter for screening mammogram for malignant neoplasm of breast (principal)
CPT/HCPCS: 77063; 77067